=== PATIENT | female | born 1935 | race African-American/Black ===

== ENCOUNTER 2020-01-28 03:29 | Inpatient (IN) | payer MEDICARE, OTHER ==
[~2020-01-28] VITALS: Ht 154.9 cm; Wt 67.2 kg
[2020-01-28] VITALS (7 sets, daily range): BP systolic 120–148; BP diastolic 56–82
--- NOTE | 2020-01-28 03:55 | Emergency Room Report ---
History of Present Illness General Chief Complaint: Back Pain-No Injury Source: Patient, EMS (Darwin Castro MD) Present Illness HPI Patient presents with 2 weeks of worsening pain in her back. The last 2 days she is unable to get comfortable and move onto her side. She denies any new weakness or numbness. There is no trauma. She denies fevers or chills. She ran out of her blood pressure medicine but she has been continuing to take her water pill. She feels dehydrated and her mouth is dry. She denies any fevers, chills, cough or chest pain. She does complain of dysuria and some incontinence which is intermittent. This is long-standing and maybe slightly worsened currently. She moved her bowels yesterday without difficulty. No saddle numbness. No sore throat, chest pain, palpitations, nausea, vomiting, diarrhea, abdominal pain, shortness of breath, rashes, depression, anxiety, visual changes, dizziness, headache. She states in the past she has had intermittent kidney problems that usually resolves with IV therapy. (Darwin Castro MD) Allergies: Coded Allergies: No Known Allergies (Unverified , 01/28/20) COVID-19 Screening Contact w/high risk pt: No Experienced COVID-19 symptoms?: No COVID-19 Testing performed ESCAPE WHEEL TOOTH CUTTER: No (Darwin Castro MD) Patient History Past Medical History: see triage record Past Surgical History: pacemaker, other Social History: Denies: smoking - When she was young, alcohol use, drug use Social History Narrative Lives with family members at home, born in [place] and she used to be a [employer] Reviewed Nursing Documentation: PMH: Agreed; PSxH: Agreed (Darwin Castro MD) Nursing Documentation-PMH Past Medical History: No History, Except For Hx Cardiac Problems: Yes - pacemaker Hx Hypertension: Yes (Darwin Castro MD) Review of Systems All Other Systems: negative except mentioned in HPI (Darwin Castro MD) Physical Exam Vital Signs Date Time Temp Pulse Resp B/P (MAP) Pulse Ox O2 Delivery O2 Flow Rate FiO2 01/28/20 03:31 98.8 86 20 158/84 (108) 97 Room Air Sp02 EP Interpretation: reviewed, normal General Appearance: no apparent distress, GCS 15, non-toxic, obese Head: normocephalic Eyes: bilateral eye normal inspection, bilateral eye PERRL, bilateral eye EOMI ENT: dry mucus membranes - almost edentuous Neck: full range of motion, supple Respiratory: chest non-tender, lungs clear, normal breath sounds Cardiovascular #1: regular rate, rhythm Cardiovascular #2: 2+ radial (R), 2+ femoral (R), 2+ femoral (L) Gastrointestinal: normal inspection, non tender, soft, overweight Genitourinary: no CVA tenderness Musculoskeletal: tender - lumbar area, no rafi tenderness - paraspinous tenderness - difficult as patient overweight, other - DJD of fingers and MCPs Neurologic: motor strength/tone normal, DTRs symmetric, oriented x3, sensory intact, cerebellar normal, speech normal Psychiatric: mood/affect normal Reflexes: 1+ knee (R), 1+ knee (L), 1+ ankle (R), 1+ ankle (L) Skin: no rash, warm/dry (Darwin Castro MD) Medical Decision Making Diagnostic Impression: Primary Impression: Back pain Qualified Codes: M54.5 - Low back pain Additional Impressions: Leukocytosis Qualified Codes: D72.828 - Other elevated white blood cell count Spondylosis of lumbar spine Spinal stenosis Qualified Codes: M48.061 - Spinal stenosis, lumbar region without neurogenic claudication Renal failure Qualified Codes: N19 - Unspecified kidney failure Hypokalemia Dehydration ER Course Patient presents with worsening back pain and clinical signs of dehydration. Differential includes osteoarthritis, metastatic process, urinary tract infection, pyelonephritis, aortic aneurysm amongst others. Evaluation with EKG , chest x-ray, lumbar spine films and labs. Patient treated with IV hydration, Tylenol, Zofran and morphine. Patient placed on a youth nutritional monitor. Suspicion for COVID-19 is extremely low. Atrial sensed pacemaker with left bundle branch block. High WBC. Clinically suspect UTI so order Rocephin 450. Elevated white count against COVID-19. Low potassium. Change IV to NS + K. Urine clear. No urinary retention as only 150 cc in mistry. More evidence of dehydration. (Less for cauda equina syndrome.) Added vancomycin for possible spinal abscess. CT with contrast ordered ( increased risk with elevated creatinine discussed with patient). Unable to order MRI as patient has pacemaker. Contacted admitting physician pending CT results. Signed out to Dr. Bacon. Laboratory Tests Test 01/28/20 04:00 White Blood Count 21.7 K/UL (4.8-10.8) H Red Blood Count 4.27 M/UL (4.20-5.40) Hemoglobin 13.0 G/DL (12.0-16.0) Hematocrit 39.2 % (37.0-47.0) Mean Corpuscular Volume 92 FL (80-99) Mean Corpuscular Hemoglobin 30.5 PG (27.0-31.0) Mean Corpuscular Hemoglobin Concent 33.1 G/DL (32.0-36.0) Red Cell Distribution Width 12.1 % (11.6-14.8) Platelet Count 395 K/UL (150-450) Mean Platelet Volume 7.5 FL (6.5-10.1) Neutrophils (%) (Auto) % (45.0-75.0) Lymphocytes (%) (Auto) % (20.0-45.0) Monocytes (%) (Auto) % (1.0-10.0) Eosinophils (%) (Auto) % (0.0-3.0) Basophils (%) (Auto) % (0.0-2.0) Differential Total Cells Counted 100 Neutrophils % (Manual) 85 % (45-75) H Lymphocytes % (Manual) 5 % (20-45) L Monocytes % (Manual) 5 % (1-10) Eosinophils % (Manual) 0 % (0-3) Basophils % (Manual) 0 % (0-2) Band Neutrophils 5 % (0-8) Platelet Estimate Adequate Platelet Morphology Normal Prothrombin Time 12.1 SEC (9.30-11.50) H Prothrombin Time INR 1.1 (0.9-1.1) Activated Partial Thromboplast Time 33 SEC (23-33) Urine Color Yellow Urine Appearance Clear Urine pH 6 (4.5-8.0) Urine Specific [place] 1.015 (1.005-1.035) Urine Protein 2+ (NEGATIVE) H Urine Glucose (UA) Negative (NEGATIVE) Urine Ketones Negative (NEGATIVE) Urine Blood 2+ (NEGATIVE) H Urine Nitrite Negative (NEGATIVE) Urine Bilirubin Negative (NEGATIVE) Urine Urobilinogen Normal MG/DL (0.0-1.0) Urine Leukocyte Esterase Negative (NEGATIVE) Urine RBC 2-4 /HPF (0 - 2) H Urine WBC 0 /HPF (0 - 2) Urine Squamous Epithelial Cells Few /LPF (NONE/OCC) Urine Bacteria None /HPF (NONE) Sodium Level 140 MMOL/L (136-145) Potassium Level 2.5 MMOL/L (3.5-5.1) *L Chloride Level 102 MMOL/L (98-107) Carbon Dioxide Level 27 MMOL/L (21-32) Anion Gap 11 mmol/L (5-15) Blood Urea Nitrogen 24 mg/dL (7-18) H Creatinine 1.6 MG/DL (0.55-1.30) H Estimated Glomerular Filtration Rate 37.3 mL/min (>60) Glucose Level 135 MG/DL (74-106) H Lactic Acid Level 1.40 mmol/L (0.4-2.0) Calcium Level 8.4 MG/DL (8.5-10.1) L Magnesium Level 1.7 MG/DL (1.8-2.4) L Total Bilirubin 0.5 MG/DL (0.2-1.0) Aspartate Amino Transferase (AST) 35 U/L (15-37) Alanine Aminotransferase (ALT) 19 U/L (12-78) Alkaline Phosphatase 69 U/L (46-116) Total Creatine Kinase 136 U/L (26-308) Troponin I 0.021 ng/mL (0.000-0.056) Pro-B-Type Natriuretic Peptide 4338 pg/mL (0-125) H Total Protein 8.7 G/DL (6.4-8.2) H Albumin 2.5 G/DL (3.4-5.0) L Globulin 6.2 g/dL Albumin/Globulin Ratio 0.4 (1.0-2.7) L Lipase 86 U/L (73-393) (Darwin Castro MD) ER Course EXAM: CT Lumbar Spine With Intravenous Contrast CLINICAL HISTORY: PAIN TECHNIQUE: Axial computed tomography images of the lumbar spine with intravenous contrast. CTDI is 11.40 mGy and DLP is 467.20 mGy-cm. One or more of the following dose reduction techniques were used: automated exposure control, adjustment of the mA and/or kV according to patient size, use of iterative reconstruction technique. COMPARISON: No relevant prior studies available. FINDINGS: The vertebral body heights are maintained. The lumbar lordosis is preserved. There is 6 mm of grade 1-2 anterolisthesis of L4 on L5 with uncovering of a disc bulge. No pars defects. Associated, severe spinal canal stenosis at this level. Likely some degree of mass-effect on the cauda equina nerve roots. Correlate with physical exam. Multilevel degenerative endplate changes, intervertebral disc space narrowing (severely involving L5-S1), and facet arthropathy. Multilevel bilateral foraminal stenosis, which is severe at L5-S1 bilaterally. Diffuse osseous demineralization. Mistry catheter within a decompressed urinary bladder. IMPRESSION: No acute fracture of the lumbar spine. Multilevel degenerative changes, preferentially involving L4-5 where there is grade 1-2 anterolisthesis and severe spinal canal stenosis. Likely some degree of mass-effect on the cauda equina nerve roots. Correlate with physical exam. Patient was endorsed to me by previous physician. She remained hemodynamically stable and neurovascularly intact in the emergency department. CT of the lumbar spine however showed multilevel degenerative changes with L4-L5 anterolisthesis and spinal canal stenosis. Patient had indicated to me that she "was having trouble going to the restroom." She was given 10 mg of Decadron IV. However when Mistry catheter was placed only 150 cc of urine was drained. There does not appear to be any true urinary retention. I discussed the case with neurosurgery attending at [facility] who agreed that this was not true cauda equina syndrome and there is therefore no need for transfer for neurosurgery evaluation, as she was not complaining of any focal numbness or weakness or saddle anesthesia. Patient was admitted to medicine. (Bradley Bacon M.D.) EKG Diagnostic Results Rate: normal Rhythm: other - Atrial sensed pacemaker (Darwin Castro MD) Rhythm Strip Diag. Results Rhythm: no PVC's, no ectopy, other - Paced (Darwin Castro MD) Other X-Ray Diagnostic Results Other X-Ray Diagnostic Results : X-Ray ordered: LS spine # of Views/Limited Vs Complete: 3 View Indication: Pain EP Interpretation: Yes Interpretation: no soft tissue swelling, other - L45 offset 1 cm (Darwin Castro MD) CT/MRI/US Diagnostic Results CT/MRI/US Diagnostic Results : Imaging Test Ordered: CT LS spine contrast Impression No acute fracture of the lumbar spine. Multilevel degenerative changes, preferentially involving L4-5 where there is grade 1-2 anterolisthesis and severe spinal canal stenosis. Likely some degree of mass-effect on the cauda equina nerve roots. (Darwin Castro MD) Last Vital Signs Date Time Temp Pulse Resp B/P (MAP) Pulse Ox O2 Delivery O2 Flow Rate FiO2 01/29/20 00:09 98.0 80 22 132/87 (102) 94 01/28/20 21:00 Room Air Status: improved (Darwin Castro MD) Disposition: ADMITTED INPATIENT Condition: Serious Darwin Castro MD Jan 28, 2020 03:55 Bradley Bacon M.D. Jan 28, 2020 09:37
[2020-01-28] MEDS ORDERED: Morphine Sulfate 2mg/ml Inj(IV/IM USE ONLY) IVP ONE (04:00)
[2020-01-28 04:25] LABS: HEMATOCRIT 39.2 % (37.0-47.0); MEAN CORPUSCULAR VOLUME 92 FL (80-99); PLATELET COUNT 395 K/UL (150-450); RED BLOOD COUNT 4.27 M/UL (4.20-5.40); RED CELL DISTRIBUTION WIDTH 12.1 % (11.6-14.8); WHITE BLOOD COUNT 21.7 K/UL (4.8-10.8)
[2020-01-28 04:34] LABS: INR 1.1 (0.9-1.1)
[2020-01-28 04:44] LABS: ALANINE AMINOTRANSFERASE 19 U/L (12-78); ALBUMIN 2.5 G/DL (3.4-5.0); ALBUMIN/GLOBULIN RATIO 0.4 (1.0-2.7); ALKALINE PHOSPHATASE 69 U/L (46-116); ANION GAP 11 mmol/L (5-15); ASPARTATE AMINO TRANSFERASE 35 U/L (15-37); BILIRUBIN,TOTAL 0.5 MG/DL (0.2-1.0); BLOOD UREA NITROGEN 24 mg/dL (7-18); CALCIUM 8.4 MG/DL (8.5-10.1); CARBON DIOXIDE 27 MMOL/L (21-32); CHLORIDE 102 MMOL/L (98-107); CREATINE KINASE 136 U/L (26-308); CREATININE 1.6 MG/DL (0.55-1.30); SODIUM 140 MMOL/L (136-145)
[2020-01-28 04:47] LABS: POTASSIUM 2.5 MMOL/L (3.5-5.1)
[2020-01-28] MEDS ORDERED: cefTRIAXone 1 GM in NS 55 ML IVPB ONE (05:00)
[2020-01-28] MEDS ORDERED: NS w/KCl 20mEq 1000ml 1,000 ML IV SCH (05:00)
[2020-01-28 05:02] LABS: APPEARANCE,URINE CLEAR; BILIRUBIN, URINE NEGATIVE (NEGATIVE); GLUCOSE, URINE (UA) NEGATIVE (NEGATIVE); KETONES,URINE NEGATIVE (NEGATIVE); LEUKOCYTE ESTERASE ,URINE NEGATIVE (NEGATIVE); NITRITE,URINE NEGATIVE (NEGATIVE); PH,URINE 6 (4.5-8.0); PROTEIN,URINE 2+ (NEGATIVE); UROBILINOGEN,URINE NORMAL MG/DL (0.0-1.0)
[2020-01-28 05:10] LABS: COLOR,URINE YELLOW
--- NOTE | 2020-01-28 06:01 | Diagnostic Imaging Report ---
EXAM: XR Chest, 1 View CLINICAL HISTORY: BK PAIN TECHNIQUE: Frontal view of the chest. COMPARISON: No relevant prior studies available. FINDINGS: Lungs: Hypoventilatory changes at the lung bases. Pleural space: Unremarkable. No pneumothorax. Heart: Moderately enlarged heart. Mediastinum: Unremarkable. Bones/joints: Unremarkable. Vasculature: Calcified, tortuous thoracic aorta. Tubes, lines and devices: Left chest dual-chamber pacemaker. IMPRESSION: Cardiomegaly and hazy densities of the bilateral lung bases that could reflect atelectasis. Superimposed airspace disease not excluded.
--- NOTE | 2020-01-28 06:04 | Diagnostic Imaging Report ---
EXAM: XR Lumbosacral Spine, 2 or 3 Views CLINICAL HISTORY: BK PAIN TECHNIQUE: Frontal and lateral views of the lumbar spine and sacrum. COMPARISON: No relevant prior studies available. FINDINGS: Vertebrae: Osteopenia. Grade 1 anterolisthesis of L4 on L5. No acute fracture or aggressive osseous lesions. Left hip dynamic screw fixation. Sacrum/coccyx: Unremarkable as visualized. No acute fracture. Disc spaces: Moderate disc space narrowing at L4-L5 and L5-S1. Soft tissues: Unremarkable. Tubes, lines and devices: Soft tissues show pacemaker wire in the lower chest and moderate stool throughout the large bowel. IMPRESSION: Lumbar spinal degenerative spondylosis with no acute fracture or traumatic malalignment.
[2020-01-28] MEDS ORDERED: Omnipaque-300 100ml vial INJ STA (06:07)
[2020-01-28] MEDS ORDERED: HydrALAZINE 25mg tab ORAL PRN (06:15)
[2020-01-28] MEDS ORDERED: Vancomycin 1 GM in NS 275 ML IVPB ONE (06:15)
[2020-01-28] MEDS: NS w/KCl 20mEq 1000ml 1,000 ML IV SCH ×2 (07:56→21:34)
--- NOTE | 2020-01-28 07:59 | Diagnostic Imaging Report ---
EXAM: CT Lumbar Spine With Intravenous Contrast CLINICAL HISTORY: PAIN TECHNIQUE: Axial computed tomography images of the lumbar spine with intravenous contrast. CTDI is 11.40 mGy and DLP is 467.20 mGy-cm. One or more of the following dose reduction techniques were used: automated exposure control, adjustment of the mA and/or kV according to patient size, use of iterative reconstruction technique. COMPARISON: No relevant prior studies available. FINDINGS: The vertebral body heights are maintained. The lumbar lordosis is preserved. There is 6 mm of grade 1-2 anterolisthesis of L4 on L5 with uncovering of a disc bulge. No pars defects. Associated, severe spinal canal stenosis at this level. Likely some degree of mass-effect on the cauda equina nerve roots. Correlate with physical exam. Multilevel degenerative endplate changes, intervertebral disc space narrowing (severely involving L5-S1), and facet arthropathy. Multilevel bilateral foraminal stenosis, which is severe at L5-S1 bilaterally. Diffuse osseous demineralization. Collins catheter within a decompressed urinary bladder. IMPRESSION: No acute fracture of the lumbar spine. Multilevel degenerative changes, preferentially involving L4-5 where there is grade 1-2 anterolisthesis and severe spinal canal stenosis. Likely some degree of mass-effect on the cauda equina nerve roots. Correlate with physical exam.
[2020-01-28] MEDS ORDERED: dexAMETHasone 10mg/ml Inj IV ONE (08:15)
[2020-01-28] MEDS: Piperacillin/Tazobactam 3.375 GM in NS 110 ML IVPB SCH ×2 (09:20→21:35)
[2020-01-28] MEDS: Hydromorphone 0.5mg/0.5ml inj IVP PRN (09:21)
[2020-01-28] MEDS ORDERED: ASPIRIN EC81 MG ORAL (10:12)
[2020-01-28] MEDS ORDERED: LIPITOR20 MG ORAL (10:15)
[2020-01-28] MEDS ORDERED: COREG25 MG ORAL (10:15)
[2020-01-28] MEDS ORDERED: FUROSEMIDE20 M1 ORAL (10:15)
--- NOTE | 2020-01-28 10:18 | History & Physical ---
History and Physical History & Physicial History and Physical HPI Patient admitted complaining of 2 weeks of worsening back pain. She denies any new weakness or numbness. There is no trauma. She denies fevers or chills. She has a history of Hypertension and ran out of her blood pressure medicine, History of Congestive Heart Failure on diuresis. She denies any cough or chest pain. She does complain of dysuria and some incontinence which is intermittent. No saddle numbness. ER Physician discussed the case with neurosurgery attending at [facility] who agreed that this was not true cauda equina syndrome and there is therefore no need for transfer for neurosurgery evaluation, as she was not complaining of any focal numbness or weakness or saddle anesthesia. Patient was admitted to medicine. Allergies: No Known Allergies Past Medical History: Hypertension, Pacemaker,Congestive Heart Failure Past Surgical History: pacemaker Social History: Denies: smoking, no alcohol use, nodrug use Lives with family members at home, born in [place] and she used to be a [employer] Family History: [place] All Other Systems: negative except mentioned in HPI Physical Exam Vital Signs Noted Date Time Temp Pulse Resp B/P (MAP) Pulse Ox O2 Delivery O2 Flow Rate FiO2 01/28/20 03:31 98.8 86 20 158/84 (108) 97 Room Air General Appearance: no apparent distress, GCS 15, non-toxic, obese Head: normocephalic Eyes: bilateral eye normal inspection, bilateral eye PERRL, bilateral eye EOMI ENT: dry mucus membranes Musculoskeletal: tender - lumbar area, no rafi tenderness - paraspinous tenderness - difficult as patient overweight, other - DJD of fingers and MCPs Neurologic: motor strength/tone normal, oriented x3, sensory intact, cerebellar normal, speech normal Skin: no rash, warm/dry, no edema Impression: Back pain Leukocytosis Pulmonary Infiltrates Elevated white blood cell count Spondylosis of lumbar spine Spinal stenosis Hypertension Pacemaker Congestive Heart Failure Plan: IV Antibiotics ID Consultation R/o Covid Pain Medications PTAMedications Renal Consultation Monitor labs IVF Collins catheter Laboratory Tests Test 01/28/20 04:00 White Blood Count 21.7 K/UL (4.8-10.8) H Red Blood Count 4.27 M/UL (4.20-5.40) Hemoglobin 13.0 G/DL (12.0-16.0) Hematocrit 39.2 % (37.0-47.0) Mean Corpuscular Volume 92 FL (80-99) Mean Corpuscular Hemoglobin 30.5 PG (27.0-31.0) Mean Corpuscular Hemoglobin Concent 33.1 G/DL (32.0-36.0) Red Cell Distribution Width 12.1 % (11.6-14.8) Platelet Count 395 K/UL (150-450) Mean Platelet Volume 7.5 FL (6.5-10.1) Neutrophils (%) (Auto) % (45.0-75.0) Lymphocytes (%) (Auto) % (20.0-45.0) Monocytes (%) (Auto) % (1.0-10.0) Eosinophils (%) (Auto) % (0.0-3.0) Basophils (%) (Auto) % (0.0-2.0) Differential Total Cells Counted 100 Neutrophils % (Manual) 85 % (45-75) H Lymphocytes % (Manual) 5 % (20-45) L Monocytes % (Manual) 5 % (1-10) Eosinophils % (Manual) 0 % (0-3) Basophils % (Manual) 0 % (0-2) Band Neutrophils 5 % (0-8) Platelet Estimate Adequate Platelet Morphology Normal Prothrombin Time 12.1 SEC (9.30-11.50) H Prothrombin Time INR 1.1 (0.9-1.1) Activated Partial Thromboplast Time 33 SEC (23-33) Urine Color Yellow Urine Appearance Clear Urine pH 6 (4.5-8.0) Urine Specific [place] 1.015 (1.005-1.035) Urine Protein 2+ (NEGATIVE) H Urine Glucose (UA) Negative (NEGATIVE) Urine Ketones Negative (NEGATIVE) Urine Blood 2+ (NEGATIVE) H Urine Nitrite Negative (NEGATIVE) Urine Bilirubin Negative (NEGATIVE) Urine Urobilinogen Normal MG/DL (0.0-1.0) Urine Leukocyte Esterase Negative (NEGATIVE) Urine RBC 2-4 /HPF (0 - 2) H Urine WBC 0 /HPF (0 - 2) Urine Squamous Epithelial Cells Few /LPF (NONE/OCC) Urine Bacteria None /HPF (NONE) Sodium Level 140 MMOL/L (136-145) Potassium Level 2.5 MMOL/L (3.5-5.1) *L Chloride Level 102 MMOL/L (98-107) Carbon Dioxide Level 27 MMOL/L (21-32) Anion Gap 11 mmol/L (5-15) Blood Urea Nitrogen 24 mg/dL (7-18) H Creatinine 1.6 MG/DL (0.55-1.30) H Estimated Glomerular Filtration Rate 37.3 mL/min (>60) Glucose Level 135 MG/DL (74-106) H Lactic Acid Level 1.40 mmol/L (0.4-2.0) Calcium Level 8.4 MG/DL (8.5-10.1) L Magnesium Level 1.7 MG/DL (1.8-2.4) L Total Bilirubin 0.5 MG/DL (0.2-1.0) Aspartate Amino Transferase (AST) 35 U/L (15-37) Alanine Aminotransferase (ALT) 19 U/L (12-78) Alkaline Phosphatase 69 U/L (46-116) Total Creatine Kinase 136 U/L (26-308) Troponin I 0.021 ng/mL (0.000-0.056) Pro-B-Type Natriuretic Peptide 4338 pg/mL (0-125) H Total Protein 8.7 G/DL (6.4-8.2) H Albumin 2.5 G/DL (3.4-5.0) L Globulin 6.2 g/dL Albumin/Globulin Ratio 0.4 (1.0-2.7) L Lipase 86 U/L (73-393) CT Lumbar Spine With Intravenous Contrast CLINICAL HISTORY: PAIN TECHNIQUE: Axial computed tomography images of the lumbar spine with intravenous contrast. CTDI is 11.40 mGy and DLP is 467.20 mGy-cm. One or more of the following dose reduction techniques were used: automated exposure control, adjustment of the mA and/or kV according to patient size, use of iterative reconstruction technique. COMPARISON: No relevant prior studies available. FINDINGS: The vertebral body heights are maintained. The lumbar lordosis is preserved. There is 6 mm of grade 1-2 anterolisthesis of L4 on L5 with uncovering of a disc bulge. No pars defects. Associated, severe spinal canal stenosis at this level. Likely some degree of mass-effect on the cauda equina nerve roots. Correlate with physical exam. Multilevel degenerative endplate changes, intervertebral disc space narrowing (severely involving L5-S1), and facet arthropathy. Multilevel bilateral foraminal stenosis, which is severe at L5-S1 bilaterally. Diffuse osseous demineralization. Collins catheter within a decompressed urinary bladder. IMPRESSION: No acute fracture of the lumbar spine. Multilevel degenerative changes, preferentially involving L4-5 where there is grade 1-2 anterolisthesis and severe spinal canal stenosis. Likely some degree of mass-effect on the cauda equina nerve roots. Correlate with physical exam. EKG:Rate: normal Rhythm: other - Atrial sensed pacemaker Other X-Ray Diagnostic Results : X-Ray LS spine: no soft tissue swelling, other - L45 offset [address]/MRI/US CT LS spine contrast No acute fracture of the lumbar spine. Multilevel degenerative changes, preferentially involving L4-5 where there is grade 1-2 anterolisthesis and severe spinal canal stenosis. Likely some degree of mass-effect on the cauda equina nerve roots. Darwin Moses MD Jan 28, 2020 10:18
--- NOTE | 2020-01-28 11:30 | Consultation ---
DATE OF CONSULTATION: 01/28/2020 INFECTIOUS DISEASE CONSULTATION CONSULTING PHYSICIAN: Chikis Leos MD. REFERRING PHYSICIAN: Deon Grover MD. REASON FOR CONSULTATION: Urinary tract infection. HISTORY OF PRESENTING ILLNESS: This is an 85-year-old lady with history of hypertension, congestive heart failure, and pacemaker placement, who comes in with worsening back pain. She does complain of dysuria. There is a concern for urinary tract infection. An Infectious Diseases consultation has been obtained for antibiotics. PAST MEDICAL HISTORY: 1. History of hypertension. 2. Congestive heart failure. 3. Pacemaker placement. SOCIAL HISTORY: She does not smoke, drink, or use drugs. FAMILY HISTORY: Noncontributory. REVIEW OF SYSTEMS: RESPIRATORY: No fever, chills, cough, shortness of breath or chest pain. CARDIAC: No chest pain. No palpitation. No dizziness. No syncope. GASTROINTESTINAL: She has nausea. No vomiting. No abdominal pain or diarrhea. MUSCULOSKELETAL: She complains of back pain. GENITOURINARY: She complains of dysuria. MEDICATIONS: As an inpatient, she is on magnesium sulfate, amlodipine, Zosyn, potassium, Tylenol, [place], Dilaudid, Zofran, hydralazine, and IV vancomycin. ALLERGIES: No known drug allergies. PHYSICAL EXAMINATION: VITAL SIGNS: Temperature 98.2, T-max of 98.8, pulse 71, respiratory rate 19, blood pressure 128/62. O2 saturation of 99% on room air. HEENT: Pupils are equally reactive to light and accommodation. Mouth appears clean without thrush. NECK: Supple. No adenopathy. No JVD. CARDIOVASCULAR: Regular rate and rhythm. No murmurs. LUNGS: Clear to auscultation bilaterally. No crackles. No wheezes. ABDOMEN: Soft. Right upper quadrant tenderness noted. No organomegaly. EXTREMITIES: No cyanosis, no clubbing, no edema. LABORATORY AND DIAGNOSTIC DATA: White count 21.7, hemoglobin 13, hematocrit 39.2, MCV 92, platelet count 395,000, neutrophils of 85%. Sodium 140, potassium 2.5, chloride 102, bicarb 27, BUN 24, creatinine 1.6. Glucose 135. Calcium 8.4. Magnesium 1.7. Total bilirubin 0.5, AST 35, ALT 19, alkaline phosphatase 69. CK 136, troponin 0.02. Beta-natriuretic peptide 4338. Total protein 8.7, albumin 2.5. Lipase of 86. UA showing [address] of the spine is showing no acute fracture, multilevel DJD noted, and severe spinal canal stenosis at L4-L5, anterolisthesis. There is some mass effect on the cauda equina nerve root. Chest x-ray is showing cardiomegaly and hazy densities of the bilateral lung bases, could represent atelectasis. Lumbar spine x-ray showing lumbar spinal degenerative spondylosis with no fracture. ASSESSMENT: This is an 85-year-old lady with history of hypertension, pacemaker, and congestive heart failure, who comes in with back pain and is found to have, 1. Possible urinary tract infection. 2. We would like to rule out pneumonia as a possibility. 3. Hypertension. 4. Congestive heart failure. 5. Leukocytosis. PLAN: 1. We will follow up on COVID-19 testing. 2. Continue Zosyn. 3. Discontinue vancomycin. 4. We will order urine cultures. 5. We will follow up cultures and adjust antibiotics accordingly. I would like to thank Dr. Grover for this consultation. Chikis Leos M.D. DR: ARMANDO JOB#: [id number] CC:
--- NOTE | 2020-01-28 14:44 | Diagnostic Imaging Report ---
EXAM: US Duplex Bilateral Lower Extremities Veins CLINICAL HISTORY: DVT TECHNIQUE: Real-time duplex ultrasound scan of the bilateral lower extremity veins integrating B-mode two-dimensional vascular structure, Doppler spectral analysis, color flow Doppler imaging and compression. COMPARISON: No relevant prior studies available. FINDINGS: Right deep veins: Unremarkable. No DVT in the right common femoral, femoral, proximal deep femoral or popliteal veins. The veins demonstrate normal color flow, are normally compressible, with normal phasic flow and/or augmentation response. Right superficial veins: Unremarkable. No thrombus in the visualized right great saphenous vein. Left deep veins: Unremarkable. No DVT in the left common femoral, femoral, proximal deep femoral or popliteal veins. The veins demonstrate normal color flow, are normally compressible, with normal phasic flow and/or augmentation response. Left superficial veins: Unremarkable. No thrombus in the visualized left great saphenous vein. Soft tissues: No acute findings. No popliteal cyst. IMPRESSION: Normal bilateral lower extremity duplex venous ultrasound.
--- NOTE | 2020-01-28 16:30 | Consultation ---
DATE OF CONSULTATION: 01/28/2020 REFERRING PHYSICIAN: Deon Grover M.D. REASON FOR CONSULTATION: Acute kidney injury. HISTORY OF PRESENT ILLNESS: The patient is an 85-year-old female who is currently heavily sedated, difficult to arouse, who was admitted for further evaluation and care of intractable back pain and found to possibly have a urinary tract infection. She was started on empiric antibiotics and Infectious Disease was consulted. The only creatinine in the electronic medical system is noted to be at 1.6. The patient was initiated of IV fluids. PAST MEDICAL HISTORY: 1. Hypertension. 2. CHF. 3. Bradycardia. SOCIAL HISTORY: No current tobacco, alcohol, or illicit drug use FAMILY HISTORY: Positive for hypertension. ALLERGIES: No known drug allergies. REVIEW OF SYSTEMS: Cannot obtain as the patient is currently heavily sedated and difficult to arouse. PHYSICAL EXAMINATION: VITAL SIGNS: Blood pressure 128/62, respiratory rate 19, pulse 71, temperature 98.1. GENERAL: The patient is very heavily sedated, difficult to arouse. HEENT: Extraocular muscles intact. No lymphadenopathy noted. CARDIOVASCULAR: S1, S2. No rubs or gallops. PULMONARY: Clear to auscultation bilaterally. No rales, rhonchi, or wheeze. ABDOMEN: Nondistended and nontender. EXTREMITIES: Trace edema bilaterally. ASSESSMENT AND PLAN: 1. Acute kidney injury versus chronic kidney disease. No baseline creatinine is available. Creatinine currently at 1.6. At this time, recommend maintaining a mean arterial blood pressure greater than 65 mmHg and avoiding nephrotoxins if possible. Would not recommend IV contrast until renal function stabilizes. Continue hydration and treat underlying urinary tract infection. 2. Urinary tract infection. Antibiotics to be adjusted by Infectious Disease. 3. Back pain. Being addressed by primary care physician. 4. Hypertension. Adjust medications as deemed appropriate. 5. Hypokalemia. The patient was given 20 mEq p.o. I will added another 40 mEq p.o. as her potassium was 2.5. 6. I will continue to follow the patient until Wednesday, January 29, 2020, and Dr. Jennings will return on Thursday, January 30, 2020. Wu Hobbs MD DR: KISHORE JOB#: [id number] CC:
[2020-01-28 18:38] LABS: ANION GAP 9 mmol/L (5-15); BLOOD UREA NITROGEN 23 mg/dL (7-18); CALCIUM 8.2 MG/DL (8.5-10.1); CARBON DIOXIDE 25 MMOL/L (21-32); CHLORIDE 108 MMOL/L (98-107); CREATININE 1.2 MG/DL (0.55-1.30); POTASSIUM 4.4 MMOL/L (3.5-5.1); SODIUM 142 MMOL/L (136-145)
[2020-01-29 00:09] VITALS: BP 132/87
[2020-01-29] MEDS: HYDROcodone/Acetamin 5/325 tab ORAL PRN ×2 (04:31→18:48)
[2020-01-29 04:37] VITALS: BP 137/87
[2020-01-29 06:51] LABS: HEMATOCRIT 33.2 % (37.0-47.0); MEAN CORPUSCULAR VOLUME 93 FL (80-99); PLATELET COUNT 351 K/UL (150-450); RED BLOOD COUNT 3.56 M/UL (4.20-5.40); RED CELL DISTRIBUTION WIDTH 12.6 % (11.6-14.8)
[2020-01-29 07:01] LABS: WHITE BLOOD COUNT 24.5 K/UL (4.8-10.8)
[2020-01-29 07:35] LABS: ALANINE AMINOTRANSFERASE 17 U/L (12-78); ALBUMIN 1.8 G/DL (3.4-5.0); ALBUMIN/GLOBULIN RATIO 0.3 (1.0-2.7); ALKALINE PHOSPHATASE 91 U/L (46-116); ANION GAP 11 mmol/L (5-15); ASPARTATE AMINO TRANSFERASE 23 U/L (15-37); BILIRUBIN,TOTAL 0.3 MG/DL (0.2-1.0); BLOOD UREA NITROGEN 24 mg/dL (7-18); CALCIUM 8.6 MG/DL (8.5-10.1); CARBON DIOXIDE 22 MMOL/L (21-32); CHLORIDE 110 MMOL/L (98-107); CREATININE 1.3 MG/DL (0.55-1.30); SODIUM 143 MMOL/L (136-145)
[2020-01-29 08:00] VITALS: BP 121/57
[2020-01-29] MEDS: Piperacillin/Tazobactam 3.375 GM in NS 110 ML IVPB SCH ×2 (08:35→21:42)
[2020-01-29] MEDS: Aspirin EC 81mg tab ORAL SCH (08:35)
[2020-01-29] MEDS: NS w/KCl 20mEq 1000ml 1,000 ML IV SCH ×2 (10:40→20:50)
[2020-01-29 12:00] VITALS: BP 123/60
[2020-01-29] MEDS ORDERED: Vancomycin 1 GM in NS 275 ML IVPB ONE (12:00)
--- NOTE | 2020-01-29 12:17 | Pulmonology Progress Note ---
Subjective ROS Limited/Unobtainable: No Allergies: Coded Allergies: No Known Allergies (Unverified , 01/28/20) Objective Last 24 Hour Vital Signs Date Time Temp Pulse Resp B/P (MAP) Pulse Ox O2 Delivery O2 Flow Rate FiO2 01/29/20 09:00 Room Air 01/29/20 08:35 74 121/57 01/29/20 08:00 98.4 74 20 121/57 (78) 94 01/29/20 05:01 98.4 01/29/20 04:37 98.4 74 20 137/87 (104) 98 01/29/20 00:09 98.0 80 22 132/87 (102) 94 01/28/20 21:00 Room Air 01/28/20 20:00 97.8 78 20 120/78 (92) 98 01/28/20 16:00 97.7 61 18 124/65 (84) 98 Intake and Output 01/28/20 01/29/20 19:00 07:00 Intake Total 1410 ml Output Total 500 ml 650 ml Balance 910 ml -650 ml Intake Oral 300 ml IV Total 1110 ml Output Urine Total 500 ml 650 ml Microbiology Date/Time Source Procedure Growth Status 01/28/20 06:00 Blood Blood Culture - Preliminary Resulted 01/28/20 05:45 Blood Blood Culture - Preliminary Resulted 01/28/20 11:10 Nasopharynx SARS-CoV-2 RdRp Gene Assay - Final Complete Laboratory Tests 01/28/20 18:05: Sodium Level 142, Potassium Level 4.4#, Chloride Level 108H, Carbon Dioxide Level 25, Anion Gap 9, Blood Urea Nitrogen 23H, Creatinine 1.2, Estimat Glomerular Filtration Rate 52.0, Glucose Level 177H, Calcium Level 8.2L 01/29/20 05:45: Sodium Level 143, Potassium Level 4.0, Chloride Level 110H, Carbon Dioxide Level 22, Anion Gap 11, Blood Urea Nitrogen 24H, Creatinine 1.3, Estimat Glomerular Filtration Rate 47.4, Glucose Level 128H, Calcium Level 8.6, White Blood Count 24.5*H, Red Blood Count 3.56L, Hemoglobin 11.0L, Hematocrit 33.2L, Mean Corpuscular Volume 93, Mean Corpuscular Hemoglobin 30.8, Mean Corpuscular Hemoglobin Concent 33.1, Red Cell Distribution Width 12.6, Platelet Count 351, Mean Platelet Volume 6.6, Neutrophils (%) (Auto) , Lymphocytes (%) (Auto) , Monocytes (%) (Auto) , Eosinophils (%) (Auto) , Basophils (%) (Auto) , Differential Total Cells Counted 100, Neutrophils % (Manual) 95H, Lymphocytes % (Manual) 3L, Monocytes % (Manual) 2, Eosinophils % (Manual) 0, Basophils % ( Manual) 0, Band Neutrophils 0, Platelet Estimate Adequate, Platelet Morphology Normal, Hypochromasia 1+, Total Bilirubin 0.3, Aspartate Amino Transf (AST/SGOT ) 23, Alanine Aminotransferase (ALT/SGPT) 17, Alkaline Phosphatase 91, Total Protein 7.0, Albumin 1.8L, Globulin 5.2, Albumin/Globulin Ratio 0.3L, Random Vancomycin Level 1.2 Current Medications Medications (Trade) Dose Ordered Sig/[place] Route PRN Reason Start Time Stop Time Status Last Admin Dose Admin Acetaminophen (Tylenol) 650 mg Q6H PRN ORAL Mild Pain (Pain Scale 1-3) 01/28/20 06:15 02/27/20 06:14 01/28/20 07:57 Acetaminophen/ Hydrocodone Bitart ([place] 5/325) 1 tab Q6H PRN ORAL Moderate Pain (Pain Scale 4-6) 01/28/20 06:15 02/04/20 06:14 01/29/20 04:31 Amlodipine Besylate (Norvasc) 2.5 mg DAILY ORAL 01/28/20 09:00 02/27/20 08:59 01/29/20 08:35 Aspirin (Ecotrin) 81 mg DAILY ORAL 01/29/20 09:00 03/14/20 08:59 01/29/20 08:35 Hydralazine HCl (Apresoline) 25 mg Q6H PRN ORAL For High Blood Pressure 01/28/20 06:15 04/27/20 06:14 Hydromorphone HCl (Dilaudid) 0.5 mg Q3H PRN IVP Severe Pain (Pain Scale 7-10) 01/28/20 06:15 02/04/20 06:14 01/28/20 09:21 Ondansetron HCl (Zofran) 4 mg Q6H PRN IVP Nausea & Vomiting 01/28/20 06:15 02/27/20 06:14 01/28/20 10:43 Piperacillin Sod/ Tazobactam Sod 3.375 gm/Sodium Chloride 110 ml @ 27.5 mls/hr Q12HR IVPB 01/28/20 09:00 02/04/20 08:59 01/29/20 08:35 Potassium Chloride/Sodium Chloride 1,000 ml @ 75 mls/hr [id number] IV 01/28/20 08:00 02/27/20 07:59 01/28/20 21:34 Vancomycin HCl (Vanco pharmacy to dose) 1 ea DAILY PRN MISC Per rx protocol 01/29/20 10:45 02/28/20 10:44 Vancomycin HCl 1 gm/Sodium Chloride 275 ml @ 183.708 mls/hr ONCE ONCE IVPB 01/29/20 12:00 01/29/20 13:29 Assessment/Plan Assessment/Plan Progress Note HPI Patient admitted complaining of 2 weeks of worsening back pain. She denies any new weakness or numbness. There is no trauma. She denies fevers or chills. She has a history of Hypertension and ran out of her blood pressure medicine, History of Congestive Heart Failure on diuresis. She denies any cough or chest pain. She does complain of dysuria and some incontinence which is intermittent. No saddle numbness. ER Physician discussed the case with neurosurgery attending at [facility] who agreed that this was not true cauda equina syndrome and there is therefore no need for transfer for neurosurgery evaluation, as she was not complaining of any focal numbness or weakness or saddle anesthesia. No new complaints Allergies: No Known Allergies Past Medical History: Hypertension, Pacemaker,Congestive Heart Failure Physical Exam Vital Signs Noted General Appearance: no apparent distress, GCS 15, non-toxic, obese Head: normocephalic Eyes: bilateral eye normal inspection, bilateral eye PERRL, bilateral eye EOMI ENT: dry mucus membranes Musculoskeletal: tender - lumbar area, no rafi tenderness - paraspinous tenderness - difficult as patient overweight, other - DJD of fingers and MCPs Neurologic: motor strength/tone normal, oriented x3, sensory intact, cerebellar normal, speech normal Skin: no rash, warm/dry, no edema Impression: Back pain Positive BC - GPC Leukocytosis Pulmonary Infiltrates, Covid 19 negative Elevated white blood cell count Spondylosis of lumbar spine Spinal stenosis Hypertension Pacemaker Congestive Heart Failure Plan: IV Antibiotics per ID ] Pain Medications PTAMedications Renal Consultation Monitor labs IVF Collins catheter Laboratory Tests Noted BC: BPC both sets CT Lumbar Spine With Intravenous Contrast CLINICAL HISTORY: PAIN TECHNIQUE: Axial computed tomography images of the lumbar spine with intravenous contrast. CTDI is 11.40 mGy and DLP is 467.20 mGy-cm. One or more of the following dose reduction techniques were used: automated exposure control, adjustment of the mA and/or kV according to patient size, use of iterative reconstruction technique. COMPARISON: No relevant prior studies available. FINDINGS: The vertebral body heights are maintained. The lumbar lordosis is preserved. There is 6 mm of grade 1-2 anterolisthesis of L4 on L5 with uncovering of a disc bulge. No pars defects. Associated, severe spinal canal stenosis at this level. Likely some degree of mass-effect on the cauda equina nerve roots. Correlate with physical exam. Multilevel degenerative endplate changes, intervertebral disc space narrowing (severely involving L5-S1), and facet arthropathy. Multilevel bilateral foraminal stenosis, which is severe at L5-S1 bilaterally. Diffuse osseous demineralization. Collins catheter within a decompressed urinary bladder. IMPRESSION: No acute fracture of the lumbar spine. Multilevel degenerative changes, preferentially involving L4-5 where there is grade 1-2 anterolisthesis and severe spinal canal stenosis. Likely some degree of mass-effect on the cauda equina nerve roots. Correlate with physical exam. EKG:Rate: normal Rhythm: other - Atrial sensed pacemaker Other X-Ray Diagnostic Results : X-Ray LS spine: no soft tissue swelling, other - L45 offset [address]/MRI/US CT LS spine contrast No acute fracture of the lumbar spine. Multilevel degenerative changes, preferentially involving L4-5 where there is grade 1-2 anterolisthesis and severe spinal canal stenosis. Likely some degree of mass-effect on the cauda equina nerve roots. Darwin Moses MD Jan 29, 2020 12:17
--- NOTE | 2020-01-29 12:28 | Infectious Diseases Prog Note ---
Assessment/Plan Assessment/Plan A; 1. Bacteremia with gram positive cocci 2. Atelectasis/ pneumonia 3. Hypertension. 4. Congestive heart failure. 5. Leukocytosis. 6. Spinal stenosis/ back pain PLAN: 1. Continue Zosyn & vancomycin. 2.We will follow up cultures and adjust antibiotics accordingly. Subjective ROS Limited/Unobtainable: No Constitutional: Reports: no symptoms Respiratory: Reports: productive cough Cardiovascular: Reports: no symptoms Gastrointestinal/Abdominal: Reports: no symptoms Genitourinary: Reports: no symptoms Musculoskeletal: Reports: pain, other - back pain better Allergies: Coded Allergies: No Known Allergies (Unverified , 01/28/20) Objective Last 24 Hour Vital Signs Date Time Temp Pulse Resp B/P (MAP) Pulse Ox O2 Delivery O2 Flow Rate FiO2 01/29/20 09:00 Room Air 01/29/20 08:35 74 121/57 01/29/20 08:00 98.4 74 20 121/57 (78) 94 01/29/20 05:01 98.4 01/29/20 04:37 98.4 74 20 137/87 (104) 98 01/29/20 00:09 98.0 80 22 132/87 (102) 94 01/28/20 21:00 Room Air 01/28/20 20:00 97.8 78 20 120/78 (92) 98 01/28/20 16:00 97.7 61 18 124/65 (84) 98 Height (Feet): 5 Height (Inches): 1.00 Weight (Pounds): 139 General Appearance: no acute distress HEENT: mucous membranes moist Respiratory/Chest: lungs clear Cardiovascular: normal rate Abdomen: soft, non tender Extremities: no edema, other - SCD of lega Neurologic/Psychiatric: alert, oriented x 3, responsive Microbiology Date/Time Source Procedure Growth Status 01/28/20 06:00 Blood Blood Culture - Preliminary Resulted 01/28/20 05:45 Blood Blood Culture - Preliminary Resulted 01/28/20 11:10 Nasopharynx SARS-CoV-2 RdRp Gene Assay - Final Complete Laboratory Tests Test 01/28/20 18:05 01/29/20 05:45 Sodium Level 142 MMOL/L (136-145) 143 MMOL/L (136-145) Potassium Level 4.4 MMOL/L (3.5-5.1) # 4.0 MMOL/L (3.5-5.1) Chloride Level 108 MMOL/L (98-107) H 110 MMOL/L (98-107) H Carbon Dioxide Level 25 MMOL/L (21-32) 22 MMOL/L (21-32) Anion Gap 9 mmol/L (5-15) 11 mmol/L (5-15) Blood Urea Nitrogen 23 mg/dL (7-18) H 24 mg/dL (7-18) H Creatinine 1.2 MG/DL (0.55-1.30) 1.3 MG/DL (0.55-1.30) Estimat Glomerular Filtration Rate 52.0 mL/min (>60) 47.4 mL/min (>60) Glucose Level 177 MG/DL (74-106) H 128 MG/DL (74-106) H Calcium Level 8.2 MG/DL (8.5-10.1) L 8.6 MG/DL (8.5-10.1) White Blood Count 24.5 K/UL (4.8-10.8) *H Red Blood Count 3.56 M/UL (4.20-5.40) L Hemoglobin 11.0 G/DL (12.0-16.0) L Hematocrit 33.2 % (37.0-47.0) L Mean Corpuscular Volume 93 FL (80-99) Mean Corpuscular Hemoglobin 30.8 PG (27.0-31.0) Mean Corpuscular Hemoglobin Concent 33.1 G/DL (32.0-36.0) Red Cell Distribution Width 12.6 % (11.6-14.8) Platelet Count 351 K/UL (150-450) Mean Platelet Volume 6.6 FL (6.5-10.1) Neutrophils (%) (Auto) % (45.0-75.0) Lymphocytes (%) (Auto) % (20.0-45.0) Monocytes (%) (Auto) % (1.0-10.0) Eosinophils (%) (Auto) % (0.0-3.0) Basophils (%) (Auto) % (0.0-2.0) Differential Total Cells Counted 100 Neutrophils % (Manual) 95 % (45-75) H Lymphocytes % (Manual) 3 % (20-45) L Monocytes % (Manual) 2 % (1-10) Eosinophils % (Manual) 0 % (0-3) Basophils % (Manual) 0 % (0-2) Band Neutrophils 0 % (0-8) Platelet Estimate Adequate Platelet Morphology Normal Hypochromasia 1+ Total Bilirubin 0.3 MG/DL (0.2-1.0) Aspartate Amino Transf (AST/SGOT) 23 U/L (15-37) Alanine Aminotransferase (ALT/SGPT) 17 U/L (12-78) Alkaline Phosphatase 91 U/L (46-116) Total Protein 7.0 G/DL (6.4-8.2) Albumin 1.8 G/DL (3.4-5.0) L Globulin 5.2 g/dL Albumin/Globulin Ratio 0.3 (1.0-2.7) L Random Vancomycin Level 1.2 ug/mL Current Medications Medications (Trade) Dose Ordered Sig/[place] Route PRN Reason Start Time Stop Time Status Last Admin Dose Admin Acetaminophen (Tylenol) 650 mg Q6H PRN ORAL Mild Pain (Pain Scale 1-3) 01/28/20 06:15 02/27/20 06:14 01/28/20 07:57 Acetaminophen/ Hydrocodone Bitart ([place] 5/325) 1 tab Q6H PRN ORAL Moderate Pain (Pain Scale 4-6) 01/28/20 06:15 02/04/20 06:14 01/29/20 04:31 Amlodipine Besylate (Norvasc) 2.5 mg DAILY ORAL 01/28/20 09:00 02/27/20 08:59 01/29/20 08:35 Aspirin (Ecotrin) 81 mg DAILY ORAL 01/29/20 09:00 03/14/20 08:59 01/29/20 08:35 Hydralazine HCl (Apresoline) 25 mg Q6H PRN ORAL For High Blood Pressure 01/28/20 06:15 04/27/20 06:14 Hydromorphone HCl (Dilaudid) 0.5 mg Q3H PRN IVP Severe Pain (Pain Scale 7-10) 01/28/20 06:15 02/04/20 06:14 01/28/20 09:21 Ondansetron HCl (Zofran) 4 mg Q6H PRN IVP Nausea & Vomiting 01/28/20 06:15 02/27/20 06:14 01/28/20 10:43 Piperacillin Sod/ Tazobactam Sod 3.375 gm/Sodium Chloride 110 ml @ 27.5 mls/hr Q12HR IVPB 01/28/20 09:00 02/04/20 08:59 01/29/20 08:35 Potassium Chloride/Sodium Chloride 1,000 ml @ 75 mls/hr [id number] IV 01/28/20 08:00 02/27/20 07:59 01/28/20 21:34 Vancomycin HCl (Vanco pharmacy to dose) 1 ea DAILY PRN MISC Per rx protocol 01/29/20 10:45 02/28/20 10:44 Vancomycin HCl 1 gm/Sodium Chloride 275 ml @ 183.708 mls/hr ONCE ONCE IVPB 01/29/20 12:00 01/29/20 13:29 Vlad Kathleen MD Jan 29, 2020 12:28
--- NOTE | 2020-01-29 12:53 | Nephrology Progress Note ---
Assessment/Plan Assessment/Plan: A/P 1. VERO. No baseline creatinine is available. - Cr down to 1.2, prn IVFs - treat underlying UTI 2. Urinary tract infection. - Antibiotics to be adjusted by ID 3. Back pain. Being addressed by primary care physician. 4. Hypertension. Adjust medications as deemed appropriate. 5. Hypokalemia- corrected Subjective Date patient seen: Jan 29, 2020 Time patient seen: 12:51 ROS Limited/Unobtainable: Yes Allergies: Coded Allergies: No Known Allergies (Unverified , 01/28/20) Subjective Very sleepy but arousable Objective Last 24 Hour Vital Signs Date Time Temp Pulse Resp B/P (MAP) Pulse Ox O2 Delivery O2 Flow Rate FiO2 01/29/20 09:00 Room Air 01/29/20 08:35 74 121/57 01/29/20 08:00 98.4 74 20 121/57 (78) 94 01/29/20 05:01 98.4 01/29/20 04:37 98.4 74 20 137/87 (104) 98 01/29/20 00:09 98.0 80 22 132/87 (102) 94 01/28/20 21:00 Room Air 01/28/20 20:00 97.8 78 20 120/78 (92) 98 01/28/20 16:00 97.7 61 18 124/65 (84) 98 Intake and Output 01/28/20 01/29/20 19:00 07:00 Intake Total 1410 ml Output Total 500 ml 650 ml Balance 910 ml -650 ml Intake Oral 300 ml IV Total 1110 ml Output Urine Total 500 ml 650 ml Laboratory Tests 01/28/20 18:05: Sodium Level 142, Potassium Level 4.4#, Chloride Level 108H, Carbon Dioxide Level 25, Anion Gap 9, Blood Urea Nitrogen 23H, Creatinine 1.2, Estimat Glomerular Filtration Rate 52.0, Glucose Level 177H, Calcium Level 8.2L 01/29/20 05:45: Sodium Level 143, Potassium Level 4.0, Chloride Level 110H, Carbon Dioxide Level 22, Anion Gap 11, Blood Urea Nitrogen 24H, Creatinine 1.3, Estimat Glomerular Filtration Rate 47.4, Glucose Level 128H, Calcium Level 8.6, White Blood Count 24.5*H, Red Blood Count 3.56L, Hemoglobin 11.0L, Hematocrit 33.2L, Mean Corpuscular Volume 93, Mean Corpuscular Hemoglobin 30.8, Mean Corpuscular Hemoglobin Concent 33.1, Red Cell Distribution Width 12.6, Platelet Count 351, Mean Platelet Volume 6.6, Neutrophils (%) (Auto) , Lymphocytes (%) (Auto) , Monocytes (%) (Auto) , Eosinophils (%) (Auto) , Basophils (%) (Auto) , Differential Total Cells Counted 100, Neutrophils % (Manual) 95H, Lymphocytes % (Manual) 3L, Monocytes % (Manual) 2, Eosinophils % (Manual) 0, Basophils % ( Manual) 0, Band Neutrophils 0, Platelet Estimate Adequate, Platelet Morphology Normal, Hypochromasia 1+, Total Bilirubin 0.3, Aspartate Amino Transf (AST/SGOT ) 23, Alanine Aminotransferase (ALT/SGPT) 17, Alkaline Phosphatase 91, Total Protein 7.0, Albumin 1.8L, Globulin 5.2, Albumin/Globulin Ratio 0.3L, Random Vancomycin Level 1.2 Height (Feet): 5 Height (Inches): 1.00 Weight (Pounds): 139 General Appearance: no apparent distress EENT: normal ENT inspection Neck: normal alignment Cardiovascular: normal rate, regular rhythm Respiratory/Chest: lungs clear Abdomen: non tender, soft Edema: no edema noted Arm (L), no edema noted Arm (R), no edema noted Leg (L), no edema noted Leg (R), no edema noted Pedal (L), no edema noted Pedal (R), no edema noted Generalized Wu Hobbs MD Jan 29, 2020 12:53
[2020-01-29 16:00] VITALS: BP 143/69
[2020-01-29] MEDS: Hydromorphone 0.5mg/0.5ml inj IVP PRN (18:55)
[2020-01-29 20:00] VITALS: BP 131/66
[2020-01-30] VITALS: BP 138/68
[2020-01-30 04:00] VITALS: BP 136/65
[2020-01-30] MEDS: Hydromorphone 0.5mg/0.5ml inj IVP PRN ×4 (04:18→20:21)
[2020-01-30 07:12] LABS: ALANINE AMINOTRANSFERASE 20 U/L (12-78); ALBUMIN/GLOBULIN RATIO 0.4 (1.0-2.7); ALKALINE PHOSPHATASE 63 U/L (46-116); ANION GAP 10 mmol/L (5-15); ASPARTATE AMINO TRANSFERASE 27 U/L (15-37); BILIRUBIN,TOTAL 0.4 MG/DL (0.2-1.0); BLOOD UREA NITROGEN 27 mg/dL (7-18); CALCIUM 9.1 MG/DL (8.5-10.1); CARBON DIOXIDE 21 MMOL/L (21-32); CHLORIDE 111 MMOL/L (98-107); CREATININE 1.3 MG/DL (0.55-1.30); SODIUM 142 MMOL/L (136-145)
[2020-01-30 07:19] LABS: HEMATOCRIT 38.1 % (37.0-47.0); HEMOGLOBIN 12.3 G/DL (12.0-16.0); MEAN CORPUSCULAR VOLUME 94 FL (80-99); PLATELET COUNT 380 K/UL (150-450); RED BLOOD COUNT 4.04 M/UL (4.20-5.40); RED CELL DISTRIBUTION WIDTH 12.9 % (11.6-14.8); WHITE BLOOD COUNT 15.6 K/UL (4.8-10.8)
[2020-01-30 08:00] VITALS: BP 156/75
[2020-01-30] MEDS: Aspirin EC 81mg tab ORAL SCH (09:44)
[2020-01-30] MEDS: Piperacillin/Tazobactam 3.375 GM in NS 110 ML IVPB SCH ×2 (09:45→20:20)
--- NOTE | 2020-01-30 10:41 | Infectious Diseases Prog Note ---
Assessment/Plan Assessment/Plan antibiotics : vancomycin iv, zosyn A 1. gram positive sepsis 2. hypertension 3. ? pneumonia 4. leucocytosis improving P 1. continue iv vancomycin, zosyn 2. will follow up cultures Subjective Constitutional: Denies: fever, chills Respiratory: Reports: shortness of breath, dry cough Gastrointestinal/Abdominal: Denies: nausea, vomiting, diarrhea Musculoskeletal: Denies: pain Allergies: Coded Allergies: No Known Allergies (Unverified , 01/28/20) Objective Last 24 Hour Vital Signs Date Time Temp Pulse Resp B/P (MAP) Pulse Ox O2 Delivery O2 Flow Rate FiO2 01/30/20 09:45 102 156/75 01/30/20 04:48 98.7 01/30/20 04:00 98.6 76 19 136/65 (88) 94 01/30/20 00:00 98.3 79 20 138/68 (91) 94 01/29/20 21:00 Room Air 01/29/20 20:00 98.9 71 18 131/66 (87) 94 01/29/20 16:00 98.5 74 20 143/69 (93) 94 01/29/20 12:00 98.5 74 18 123/60 (81) 94 Height (Feet): 5 Height (Inches): 1.00 Weight (Pounds): 139 Respiratory/Chest: lungs clear Cardiovascular: normal rate, regular rhythm, no gallop/murmur Abdomen: soft, non tender Extremities: no edema Microbiology Date/Time Source Procedure Growth Status 01/28/20 06:00 Blood Blood Culture - Preliminary Gram Positive Cocci Resulted 01/28/20 05:45 Blood Blood Culture - Preliminary Gram Positive Cocci Resulted 01/28/20 11:10 Nasopharynx SARS-CoV-2 RdRp Gene Assay - Final Complete Laboratory Tests Test 01/30/20 05:35 White Blood Count 15.6 K/UL (4.8-10.8) H Red Blood Count 4.04 M/UL (4.20-5.40) L Hemoglobin 12.3 G/DL (12.0-16.0) Hematocrit 38.1 % (37.0-47.0) Mean Corpuscular Volume 94 FL (80-99) Mean Corpuscular Hemoglobin 30.4 PG (27.0-31.0) Mean Corpuscular Hemoglobin Concent 32.2 G/DL (32.0-36.0) Red Cell Distribution Width 12.9 % (11.6-14.8) Platelet Count 380 K/UL (150-450) Mean Platelet Volume 6.9 FL (6.5-10.1) Neutrophils (%) (Auto) % (45.0-75.0) Lymphocytes (%) (Auto) % (20.0-45.0) Monocytes (%) (Auto) % (1.0-10.0) Eosinophils (%) (Auto) % (0.0-3.0) Basophils (%) (Auto) % (0.0-2.0) Differential Total Cells Counted 100 Neutrophils % (Manual) 96 % (45-75) H Lymphocytes % (Manual) 1 % (20-45) L Monocytes % (Manual) 3 % (1-10) Eosinophils % (Manual) 0 % (0-3) Basophils % (Manual) 0 % (0-2) Band Neutrophils 0 % (0-8) Platelet Estimate Adequate Platelet Morphology Normal Red Blood Cell Morphology Normal Sodium Level 142 MMOL/L (136-145) Potassium Level 4.0 MMOL/L (3.5-5.1) Chloride Level 111 MMOL/L (98-107) H Carbon Dioxide Level 21 MMOL/L (21-32) Anion Gap 10 mmol/L (5-15) Blood Urea Nitrogen 27 mg/dL (7-18) H Creatinine 1.3 MG/DL (0.55-1.30) Estimat Glomerular Filtration Rate 47.4 mL/min (>60) Glucose Level 99 MG/DL (74-106) Calcium Level 9.1 MG/DL (8.5-10.1) Total Bilirubin 0.4 MG/DL (0.2-1.0) Aspartate Amino Transf (AST/SGOT) 27 U/L (15-37) Alanine Aminotransferase (ALT/SGPT) 20 U/L (12-78) Alkaline Phosphatase 63 U/L (46-116) Total Protein 7.5 G/DL (6.4-8.2) Albumin 2.0 G/DL (3.4-5.0) L Globulin 5.5 g/dL Albumin/Globulin Ratio 0.4 (1.0-2.7) L Random Vancomycin Level 10.3 ug/mL Current Medications Medications (Trade) Dose Ordered Sig/[place] Route PRN Reason Start Time Stop Time Status Last Admin Dose Admin Acetaminophen (Tylenol) 650 mg Q6H PRN ORAL Mild Pain (Pain Scale 1-3) 01/28/20 06:15 02/27/20 06:14 01/28/20 07:57 Acetaminophen/ Hydrocodone Bitart ([place] 5/325) 1 tab Q6H PRN ORAL Moderate Pain (Pain Scale 4-6) 01/28/20 06:15 02/04/20 06:14 01/29/20 04:31 Amlodipine Besylate (Norvasc) 2.5 mg DAILY ORAL 01/28/20 09:00 02/27/20 08:59 01/30/20 09:45 Aspirin (Ecotrin) 81 mg DAILY ORAL 01/29/20 09:00 03/14/20 08:59 01/30/20 09:44 Hydralazine HCl (Apresoline) 25 mg Q6H PRN ORAL For High Blood Pressure 01/28/20 06:15 04/27/20 06:14 Hydromorphone HCl (Dilaudid) 0.5 mg Q3H PRN IVP Severe Pain (Pain Scale 7-10) 01/28/20 06:15 02/04/20 06:14 01/30/20 04:18 Ondansetron HCl (Zofran) 4 mg Q6H PRN IVP Nausea & Vomiting 01/28/20 06:15 02/27/20 06:14 01/28/20 10:43 Piperacillin Sod/ Tazobactam Sod 3.375 gm/Sodium Chloride 110 ml @ 27.5 mls/hr Q12HR IVPB 01/28/20 09:00 02/04/20 08:59 01/30/20 09:45 Potassium Chloride/Sodium Chloride 1,000 ml @ 75 mls/hr [id number] IV 01/28/20 08:00 02/27/20 07:59 01/29/20 20:50 Vancomycin HCl (Vanco pharmacy to dose) 1 ea DAILY PRN MISC Per rx protocol 01/29/20 10:45 02/28/20 10:44 Vancomycin HCl 1 gm/Dextrose 275 ml @ 183.708 mls/hr ONCE ONCE IVPB 01/30/20 12:00 01/30/20 13:29 Chikis Leos MD Jan 30, 2020 10:41
[2020-01-30] MEDS ORDERED: LORazepam 0.5mg tab ORAL SCH (11:45)
[2020-01-30 12:00] VITALS: BP 165/85
[2020-01-30] MEDS ORDERED: Vancomycin 1gm/D5W 275ml IVPB ONE ×2 (12:00)
[2020-01-30] MEDS: NS w/KCl 20mEq 1000ml 1,000 ML IV SCH (13:20)
--- NOTE | 2020-01-30 13:30 | Pulmonology Progress Note ---
Subjective ROS Limited/Unobtainable: Yes Constitutional: Denies: fever, chills Gastrointestinal/Abdominal: Denies: nausea, vomiting, diarrhea Musculoskeletal: Denies: pain Allergies: Coded Allergies: No Known Allergies (Unverified , 01/28/20) Objective Last 24 Hour Vital Signs Date Time Temp Pulse Resp B/P (MAP) Pulse Ox O2 Delivery O2 Flow Rate FiO2 01/30/20 12:00 97.1 95 21 165/85 (111) 97 01/30/20 09:45 102 156/75 01/30/20 09:00 Room Air 01/30/20 08:00 98.9 102 21 156/75 (102) 97 01/30/20 04:48 98.7 01/30/20 04:00 98.6 76 19 136/65 (88) 94 01/30/20 00:00 98.3 79 20 138/68 (91) 94 01/29/20 21:00 Room Air 01/29/20 20:00 98.9 71 18 131/66 (87) 94 01/29/20 16:00 98.5 74 20 143/69 (93) 94 Intake and Output 01/29/20 01/30/20 19:00 07:00 Intake Total 500 ml Output Total 400 ml 400 ml Balance -400 ml 100 ml Intake Oral 500 ml Output Urine Total 400 ml 400 ml Microbiology Date/Time Source Procedure Growth Status 01/28/20 06:00 Blood Blood Culture - Preliminary Gram Positive Cocci Resulted 01/28/20 05:45 Blood Blood Culture - Preliminary Gram Positive Cocci Resulted 01/28/20 11:10 Nasopharynx SARS-CoV-2 RdRp Gene Assay - Final Complete Laboratory Tests 01/30/20 05:35: White Blood Count 15.6H, Red Blood Count 4.04L, Hemoglobin 12.3, Hematocrit 38.1 , Mean Corpuscular Volume 94, Mean Corpuscular Hemoglobin 30.4, Mean Corpuscular Hemoglobin Concent 32.2, Red Cell Distribution Width 12.9, Platelet Count 380, Mean Platelet Volume 6.9, Neutrophils (%) (Auto) , Lymphocytes (%) ( Auto) , Monocytes (%) (Auto) , Eosinophils (%) (Auto) , Basophils (%) (Auto) , Differential Total Cells Counted 100, Neutrophils % (Manual) 96H, Lymphocytes % (Manual) 1L, Monocytes % (Manual) 3, Eosinophils % (Manual) 0, Basophils % ( Manual) 0, Band Neutrophils 0, Platelet Estimate Adequate, Platelet Morphology Normal, Red Blood Cell Morphology Normal, Sodium Level 142, Potassium Level 4.0 , Chloride Level 111H, Carbon Dioxide Level 21, Anion Gap 10, Blood Urea Nitrogen 27H, Creatinine 1.3, Estimat Glomerular Filtration Rate 47.4, Glucose Level 99, Calcium Level 9.1, Total Bilirubin 0.4, Aspartate Amino Transf (AST/ SGOT) 27, Alanine Aminotransferase (ALT/SGPT) 20, Alkaline Phosphatase 63, Total Protein 7.5, Albumin 2.0L, Globulin 5.5, Albumin/Globulin Ratio 0.4L, Random Vancomycin Level 10.3 Current Medications Medications (Trade) Dose Ordered Sig/[place] Route PRN Reason Start Time Stop Time Status Last Admin Dose Admin Acetaminophen (Tylenol) 650 mg Q6H PRN ORAL Mild Pain (Pain Scale 1-3) 01/28/20 06:15 02/27/20 06:14 01/28/20 07:57 Acetaminophen/ Hydrocodone Bitart ([place] 5/325) 1 tab Q6H PRN ORAL Moderate Pain (Pain Scale 4-6) 01/28/20 06:15 02/04/20 06:14 01/29/20 04:31 Amlodipine Besylate (Norvasc) 2.5 mg DAILY ORAL 01/28/20 09:00 02/27/20 08:59 01/30/20 09:45 Aspirin (Ecotrin) 81 mg DAILY ORAL 01/29/20 09:00 03/14/20 08:59 01/30/20 09:44 Hydralazine HCl (Apresoline) 25 mg Q6H PRN ORAL For High Blood Pressure 01/28/20 06:15 04/27/20 06:14 Hydromorphone HCl (Dilaudid) 0.5 mg Q3H PRN IVP Severe Pain (Pain Scale 7-10) 01/28/20 06:15 02/04/20 06:14 01/30/20 11:19 Ondansetron HCl (Zofran) 4 mg Q6H PRN IVP Nausea & Vomiting 01/28/20 06:15 02/27/20 06:14 01/28/20 10:43 Piperacillin Sod/ Tazobactam Sod 3.375 gm/Sodium Chloride 110 ml @ 27.5 mls/hr Q12HR IVPB 01/28/20 09:00 02/04/20 08:59 01/30/20 09:45 Potassium Chloride/Sodium Chloride 1,000 ml @ 75 mls/hr [id number] IV 01/28/20 08:00 02/27/20 07:59 01/29/20 20:50 Vancomycin HCl (Vanco pharmacy to dose) 1 ea DAILY PRN MISC Per rx protocol 01/29/20 10:45 02/28/20 10:44 Vancomycin HCl 1 gm/Dextrose 275 ml @ 183.708 mls/hr ONCE ONCE IVPB 01/30/20 12:00 01/30/20 13:29 01/30/20 12:17 Assessment/Plan Assessment/Plan Progress Note HPI Patient admitted complaining of 2 weeks of worsening back pain. She denies any new weakness or numbness. There is no trauma. She denies fevers or chills. She has a history of Hypertension and ran out of her blood pressure medicine, History of Congestive Heart Failure on diuresis. She denies any cough or chest pain. She does complain of dysuria and some incontinence which is intermittent. No saddle numbness. ER Physician discussed the case with neurosurgery attending at [facility] who agreed that this was not true cauda equina syndrome and there is therefore no need for transfer for neurosurgery evaluation, as she was not complaining of any focal numbness or weakness or saddle anesthesia. No new complaints, on AB per ID for GPC in [place] Allergies: No Known Allergies Past Medical History: Hypertension, Pacemaker,Congestive Heart Failure Physical Exam Vital Signs Noted General Appearance: no apparent distress, GCS 15, non-toxic, obese Head: normocephalic Eyes: bilateral eye normal inspection, bilateral eye PERRL, bilateral eye EOMI ENT: dry mucus membranes Musculoskeletal: tender - lumbar area, no rafi tenderness - paraspinous tenderness - difficult as patient overweight, other - DJD of fingers and MCPs Neurologic: motor strength/tone normal, oriented x3, sensory intact, cerebellar normal, speech normal Skin: no rash, warm/dry, no edema Impression: Back pain Positive BC - GPC Leukocytosis Pulmonary Infiltrates, Covid 19 negative Elevated white blood cell count Spondylosis of lumbar spine Spinal stenosis Hypertension Pacemaker Congestive Heart Failure Renal impairment improving Plan: IV Antibiotics per ID Pain Medications PTAMedications Renal following Monitor labs IVF Collins catheter Laboratory Tests Noted BC: BPC both sets CT Lumbar Spine With Intravenous Contrast CLINICAL HISTORY: PAIN TECHNIQUE: Axial computed tomography images of the lumbar spine with intravenous contrast. CTDI is 11.40 mGy and DLP is 467.20 mGy-cm. One or more of the following dose reduction techniques were used: automated exposure control, adjustment of the mA and/or kV according to patient size, use of iterative reconstruction technique. COMPARISON: No relevant prior studies available. FINDINGS: The vertebral body heights are maintained. The lumbar lordosis is preserved. There is 6 mm of grade 1-2 anterolisthesis of L4 on L5 with uncovering of a disc bulge. No pars defects. Associated, severe spinal canal stenosis at this level. Likely some degree of mass-effect on the cauda equina nerve roots. Correlate with physical exam. Multilevel degenerative endplate changes, intervertebral disc space narrowing (severely involving L5-S1), and facet arthropathy. Multilevel bilateral foraminal stenosis, which is severe at L5-S1 bilaterally. Diffuse osseous demineralization. Collins catheter within a decompressed urinary bladder. IMPRESSION: No acute fracture of the lumbar spine. Multilevel degenerative changes, preferentially involving L4-5 where there is grade 1-2 anterolisthesis and severe spinal canal stenosis. Likely some degree of mass-effect on the cauda equina nerve roots. Correlate with physical exam. EKG:Rate: normal Rhythm: other - Atrial sensed pacemaker Other X-Ray Diagnostic Results : X-Ray LS spine: no soft tissue swelling, other - L45 offset [address]/MRI/US CT LS spine contrast No acute fracture of the lumbar spine. Multilevel degenerative changes, preferentially involving L4-5 where there is grade 1-2 anterolisthesis and severe spinal canal stenosis. Likely some degree of mass-effect on the cauda equina nerve roots. Darwin Moses MD Jan 30, 2020 13:30
[2020-01-30 16:00] VITALS: BP 148/87
[2020-01-30 19:59] VITALS: BP 155/85
--- NOTE | 2020-01-30 20:05 | Nephrology Progress Note ---
Assessment/Plan Problem List: (1) Bacteremia (2) VERO (acute kidney injury) (3) Dehydration (4) Back pain (5) Leukocytosis (6) Spondylosis of lumbar spine Plan continue hydration iv,trend lab, await further culture Subjective ROS Limited/Unobtainable: Yes Objective Objective Last 24 Hour Vital Signs Date Time Temp Pulse Resp B/P (MAP) Pulse Ox O2 Delivery O2 Flow Rate FiO2 01/30/20 19:59 97.9 93 20 155/85 (108) 93 01/30/20 16:00 98.6 96 20 148/87 (107) 98 01/30/20 12:00 97.1 95 21 165/85 (111) 97 01/30/20 09:45 102 156/75 01/30/20 09:00 Room Air 01/30/20 08:00 98.9 102 21 156/75 (102) 97 01/30/20 04:48 98.7 01/30/20 04:00 98.6 76 19 136/65 (88) 94 01/30/20 00:00 98.3 79 20 138/68 (91) 94 01/29/20 21:00 Room Air Intake and Output 01/29/20 01/30/20 19:00 07:00 Intake Total 500 ml Output Total 400 ml 400 ml Balance -400 ml 100 ml Intake Oral 500 ml Output Urine Total 400 ml 400 ml Laboratory Tests 01/30/20 05:35: White Blood Count 15.6H, Red Blood Count 4.04L, Hemoglobin 12.3, Hematocrit 38.1 , Mean Corpuscular Volume 94, Mean Corpuscular Hemoglobin 30.4, Mean Corpuscular Hemoglobin Concent 32.2, Red Cell Distribution Width 12.9, Platelet Count 380, Mean Platelet Volume 6.9, Neutrophils (%) (Auto) , Lymphocytes (%) ( Auto) , Monocytes (%) (Auto) , Eosinophils (%) (Auto) , Basophils (%) (Auto) , Differential Total Cells Counted 100, Neutrophils % (Manual) 96H, Lymphocytes % (Manual) 1L, Monocytes % (Manual) 3, Eosinophils % (Manual) 0, Basophils % ( Manual) 0, Band Neutrophils 0, Platelet Estimate Adequate, Platelet Morphology Normal, Red Blood Cell Morphology Normal, Sodium Level 142, Potassium Level 4.0 , Chloride Level 111H, Carbon Dioxide Level 21, Anion Gap 10, Blood Urea Nitrogen 27H, Creatinine 1.3, Estimat Glomerular Filtration Rate 47.4, Glucose Level 99, Calcium Level 9.1, Total Bilirubin 0.4, Aspartate Amino Transf (AST/ SGOT) 27, Alanine Aminotransferase (ALT/SGPT) 20, Alkaline Phosphatase 63, Total Protein 7.5, Albumin 2.0L, Globulin 5.5, Albumin/Globulin Ratio 0.4L, Random Vancomycin Level 10.3 Height (Feet): 5 Height (Inches): 1.00 Weight (Pounds): 139 General Appearance: lethargic EENT: normal ENT inspection Neck: normal alignment Cardiovascular: normal peripheral pulses Respiratory/Chest: lungs clear Abdomen: non tender Neurologic: steam box tender II-XII grossly normal Giovanny Jennings MD Jan 30, 2020 20:04
[2020-01-31] VITALS: BP 139/82
[2020-01-31] MEDS: Hydromorphone 0.5mg/0.5ml inj IVP PRN ×3 (03:51→22:35)
[2020-01-31 04:00] VITALS: BP 150/69
[2020-01-31 06:43] LABS: BASOPHILS % (AUTO) 1.2 % (0.0-2.0); EOSINOPHILS % (AUTO) 3.9 % (0.0-3.0); HEMATOCRIT 36.4 % (37.0-47.0); HEMOGLOBIN 11.8 G/DL (12.0-16.0); MEAN CORPUSCULAR VOLUME 94 FL (80-99); MONOCYTES % (AUTO) 3.8 % (1.0-10.0); NEUTROPHILS % (AUTO) 82.1 % (45.0-75.0); PLATELET COUNT 369 K/UL (150-450); RED BLOOD COUNT 3.89 M/UL (4.20-5.40); RED CELL DISTRIBUTION WIDTH 13.1 % (11.6-14.8); WHITE BLOOD COUNT 7.6 K/UL (4.8-10.8)
[2020-01-31 07:10] LABS: ANION GAP 9 mmol/L (5-15); BLOOD UREA NITROGEN 18 mg/dL (7-18); CALCIUM 8.6 MG/DL (8.5-10.1); CARBON DIOXIDE 22 MMOL/L (21-32); CHLORIDE 113 MMOL/L (98-107); CREATINE KINASE 16 U/L (26-308); CREATININE 1.1 MG/DL (0.55-1.30); POTASSIUM 4.3 MMOL/L (3.5-5.1); SODIUM 144 MMOL/L (136-145)
[2020-01-31 08:00] VITALS: BP 159/88
[2020-01-31] MEDS: NS w/KCl 20mEq 1000ml 1,000 ML IV SCH (08:00)
--- NOTE | 2020-01-31 08:07 | General Progress Note ---
Assessment/Plan Assessment/Plan: Impression: Back pain Positive BC - GPC Leukocytosis Pulmonary Infiltrates, Covid 19 negative Elevated white blood cell count Spondylosis of lumbar spine Spinal stenosis Hypertension Pacemaker Congestive Heart Failure Renal impairment improving Plan: IV Antibiotics per ID Pain Medications Renal follow up Monitor labs IVF Collins catheter and dc when able hope to stabilize and dc home with HH impression, plan, and exam edited and reviewed in detail care discussed with RN Subjective Allergies: Coded Allergies: No Known Allergies (Unverified , 01/28/20) Subjective still with back pain wbc better Objective Last 24 Hour Vital Signs Date Time Temp Pulse Resp B/P (MAP) Pulse Ox O2 Delivery O2 Flow Rate FiO2 01/31/20 04:00 98.8 86 19 150/69 (96) 97 01/31/20 00:00 98.4 78 20 139/82 (101) 97 01/30/20 21:00 Nasal Cannula 2.0 01/30/20 19:59 97.9 93 20 155/85 (108) 93 01/30/20 16:00 98.6 96 20 148/87 (107) 98 01/30/20 12:00 97.1 95 21 165/85 (111) 97 01/30/20 09:45 102 156/75 01/30/20 09:00 Room Air Intake and Output 01/30/20 01/31/20 19:00 07:00 Intake Total 170 ml 560 ml Output Total 600 ml 925 ml Balance -430 ml -365 ml Intake Oral 120 ml 360 ml IV Total 50 ml 200 ml Output Urine Total 600 ml 925 ml Laboratory Tests 01/31/20 05:45: White Blood Count 7.6#, Red Blood Count 3.89L, Hemoglobin 11.8L, Hematocrit 36.4L, Mean Corpuscular Volume 94, Mean Corpuscular Hemoglobin 30.3, Mean Corpuscular Hemoglobin Concent 32.4, Red Cell Distribution Width 13.1, Platelet Count 369, Mean Platelet Volume 6.7, Neutrophils (%) (Auto) 82.1H, Lymphocytes ( %) (Auto) 9.0L, Monocytes (%) (Auto) 3.8, Eosinophils (%) (Auto) 3.9H, Basophils (%) (Auto) 1.2, Sodium Level 144, Potassium Level 4.3, Chloride Level 113H, Carbon Dioxide Level 22, Anion Gap 9, Blood Urea Nitrogen 18, Creatinine 1.1, Estimat Glomerular Filtration Rate 57.4, Glucose Level 100, Calcium Level 8.6, Total Creatine Kinase 16L Height (Feet): 5 Height (Inches): 1.00 Weight (Pounds): 139 Objective WDWN NAD clear breath sounds bilaterally without rhonchi or wheeze [id number] without MRG NABS nontender no HSM no CCE nonfocal back pain noted Deon Grover MD Jan 31, 2020 08:07
[2020-01-31] MEDS: Piperacillin/Tazobactam 3.375 GM in NS 110 ML IVPB SCH (08:33)
[2020-01-31] MEDS: Aspirin EC 81mg tab ORAL SCH (08:33)
[2020-01-31] MEDS: HYDROcodone/Acetamin 5/325 tab ORAL PRN (08:35)
--- NOTE | 2020-01-31 10:51 | Infectious Diseases Prog Note ---
Assessment/Plan Assessment/Plan antibiotics : vancomycin iv, zosyn A 1. gram positive sepsis 2. hypertension 3. ? pneumonia 4. leucocytosis improving P 1. continue iv vancomycin 2. dc zosyn 3. will follow up cultures Subjective ROS Limited/Unobtainable: Yes Allergies: Coded Allergies: No Known Allergies (Unverified , 01/28/20) Objective Last 24 Hour Vital Signs Date Time Temp Pulse Resp B/P (MAP) Pulse Ox O2 Delivery O2 Flow Rate FiO2 01/31/20 08:33 100 159/88 01/31/20 08:10 Nasal Cannula 2.0 01/31/20 08:00 97.9 100 20 159/88 (111) 99 01/31/20 04:00 98.8 86 19 150/69 (96) 97 01/31/20 00:00 98.4 78 20 139/82 (101) 97 01/30/20 21:00 Nasal Cannula 2.0 01/30/20 19:59 97.9 93 20 155/85 (108) 93 01/30/20 16:00 98.6 96 20 148/87 (107) 98 01/30/20 12:00 97.1 95 21 165/85 (111) 97 Height (Feet): 5 Height (Inches): 1.00 Weight (Pounds): 139 Respiratory/Chest: lungs clear Cardiovascular: normal rate, regular rhythm, no gallop/murmur Abdomen: soft, non tender Extremities: no edema Microbiology Date/Time Source Procedure Growth Status 01/28/20 11:10 Nasopharynx SARS-CoV-2 RdRp Gene Assay - Final Complete Laboratory Tests Test 01/31/20 05:45 White Blood Count 7.6 K/UL (4.8-10.8) # Red Blood Count 3.89 M/UL (4.20-5.40) L Hemoglobin 11.8 G/DL (12.0-16.0) L Hematocrit 36.4 % (37.0-47.0) L Mean Corpuscular Volume 94 FL (80-99) Mean Corpuscular Hemoglobin 30.3 PG (27.0-31.0) Mean Corpuscular Hemoglobin Concent 32.4 G/DL (32.0-36.0) Red Cell Distribution Width 13.1 % (11.6-14.8) Platelet Count 369 K/UL (150-450) Mean Platelet Volume 6.7 FL (6.5-10.1) Neutrophils (%) (Auto) 82.1 % (45.0-75.0) H Lymphocytes (%) (Auto) 9.0 % (20.0-45.0) L Monocytes (%) (Auto) 3.8 % (1.0-10.0) Eosinophils (%) (Auto) 3.9 % (0.0-3.0) H Basophils (%) (Auto) 1.2 % (0.0-2.0) Sodium Level 144 MMOL/L (136-145) Potassium Level 4.3 MMOL/L (3.5-5.1) Chloride Level 113 MMOL/L (98-107) H Carbon Dioxide Level 22 MMOL/L (21-32) Anion Gap 9 mmol/L (5-15) Blood Urea Nitrogen 18 mg/dL (7-18) Creatinine 1.1 MG/DL (0.55-1.30) Estimat Glomerular Filtration Rate 57.4 mL/min (>60) Glucose Level 100 MG/DL (74-106) Calcium Level 8.6 MG/DL (8.5-10.1) Total Creatine Kinase 16 U/L (26-308) L Current Medications Medications (Trade) Dose Ordered Sig/[place] Route PRN Reason Start Time Stop Time Status Last Admin Dose Admin Acetaminophen (Tylenol) 650 mg Q6H PRN ORAL Mild Pain (Pain Scale 1-3) 01/28/20 06:15 02/27/20 06:14 01/28/20 07:57 Acetaminophen/ Hydrocodone Bitart ([place] 5/325) 1 tab Q6H PRN ORAL Moderate Pain (Pain Scale 4-6) 01/28/20 06:15 02/04/20 06:14 01/31/20 08:35 Amlodipine Besylate (Norvasc) 2.5 mg DAILY ORAL 01/28/20 09:00 02/27/20 08:59 01/31/20 08:33 Aspirin (Ecotrin) 81 mg DAILY ORAL 01/29/20 09:00 03/14/20 08:59 01/31/20 08:33 Hydralazine HCl (Apresoline) 25 mg Q6H PRN ORAL For High Blood Pressure 01/28/20 06:15 04/27/20 06:14 Hydromorphone HCl (Dilaudid) 0.5 mg Q3H PRN IVP Severe Pain (Pain Scale 7-10) 01/28/20 06:15 02/04/20 06:14 01/31/20 03:51 Ondansetron HCl (Zofran) 4 mg Q6H PRN IVP Nausea & Vomiting 01/28/20 06:15 02/27/20 06:14 01/28/20 10:43 Piperacillin Sod/ Tazobactam Sod 3.375 gm/Sodium Chloride 110 ml @ 27.5 mls/hr Q8H IVPB 01/31/20 17:00 02/07/20 16:59 Potassium Chloride/Sodium Chloride 1,000 ml @ 50 mls/hr Q20H IV 01/31/20 08:00 03/01/20 07:59 Vancomycin HCl (Vanco pharmacy to dose) 1 ea DAILY PRN MISC Per rx protocol 01/29/20 10:45 02/28/20 10:44 Chikis Leos MD Jan 31, 2020 10:51
[2020-01-31 12:00] VITALS: BP 157/74
[2020-01-31 16:00] VITALS: BP 157/104
[2020-01-31] MEDS ORDERED: CHLORTHALIDONE25 MG ORAL (16:00)
[2020-01-31] MEDS ORDERED: HYDROCHLOROTHIA25 MG ORAL (16:00)
[2020-01-31] MEDS ORDERED: Piperacillin/Tazobactam 3.375 GM in NS 110 ML IVPB SCH (17:00)
[2020-01-31 20:00] VITALS: BP 153/83
--- NOTE | 2020-01-31 21:15 | Nephrology Progress Note ---
Assessment/Plan Problem List: (1) Bacteremia (2) VERO (acute kidney injury) (3) Dehydration (4) Back pain (5) Leukocytosis (6) Spondylosis of lumbar spine Plan continue hydration iv,trend lab, await further culture Subjective ROS Limited/Unobtainable: Yes Objective Objective Last 24 Hour Vital Signs Date Time Temp Pulse Resp B/P (MAP) Pulse Ox O2 Delivery O2 Flow Rate FiO2 01/31/20 16:00 97.6 111 20 157/104 (121) 98 01/31/20 12:00 98.3 86 21 157/74 (101) 99 01/31/20 08:33 100 159/88 01/31/20 08:10 Nasal Cannula 2.0 01/31/20 08:00 97.9 100 20 159/88 (111) 99 01/31/20 04:00 98.8 86 19 150/69 (96) 97 01/31/20 00:00 98.4 78 20 139/82 (101) 97 Intake and Output 01/30/20 01/31/20 19:00 07:00 Intake Total 170 ml 560 ml Output Total 600 ml 925 ml Balance -430 ml -365 ml Intake Oral 120 ml 360 ml IV Total 50 ml 200 ml Output Urine Total 600 ml 925 ml Laboratory Tests 01/31/20 05:45: White Blood Count 7.6#, Red Blood Count 3.89L, Hemoglobin 11.8L, Hematocrit 36.4L, Mean Corpuscular Volume 94, Mean Corpuscular Hemoglobin 30.3, Mean Corpuscular Hemoglobin Concent 32.4, Red Cell Distribution Width 13.1, Platelet Count 369, Mean Platelet Volume 6.7, Neutrophils (%) (Auto) 82.1H, Lymphocytes ( %) (Auto) 9.0L, Monocytes (%) (Auto) 3.8, Eosinophils (%) (Auto) 3.9H, Basophils (%) (Auto) 1.2, Sodium Level 144, Potassium Level 4.3, Chloride Level 113H, Carbon Dioxide Level 22, Anion Gap 9, Blood Urea Nitrogen 18, Creatinine 1.1, Estimat Glomerular Filtration Rate 57.4, Glucose Level 100, Calcium Level 8.6, Total Creatine Kinase 16L Height (Feet): 5 Height (Inches): 1.00 Weight (Pounds): 139 General Appearance: alert, confused EENT: normal ENT inspection Neck: normal alignment Cardiovascular: normal rate, regular rhythm Respiratory/Chest: lungs clear Abdomen: non tender, soft Extremities: non-tender, normal inspection 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
[2020-02-01] VITALS: BP 141/75
[2020-02-01] MEDS: NS w/KCl 20mEq 1000ml 1,000 ML IV SCH ×2 (03:00→23:27)
[2020-02-01 04:00] VITALS: BP 150/80
[2020-02-01] MEDS: Hydromorphone 0.5mg/0.5ml inj IVP PRN ×3 (04:45→23:18)
[2020-02-01 08:00] VITALS: BP 149/85
[2020-02-01] MEDS: Aspirin EC 81mg tab ORAL SCH (08:37)
[2020-02-01] MEDS: Vancomycin 1gm/D5W 275ml IVPB SCH ×2 (08:37)
--- NOTE | 2020-02-01 10:50 | Infectious Diseases Prog Note ---
Assessment/Plan Assessment/Plan antibiotics : vancomycin iv A 1. gram positive sepsis 2. hypertension 3. ? pneumonia 4. leucocytosis resolved P 1. continue iv vancomycin 2. will follow up cultures Subjective ROS Limited/Unobtainable: Yes Allergies: Coded Allergies: No Known Allergies (Unverified , 01/28/20) Objective Last 24 Hour Vital Signs Date Time Temp Pulse Resp B/P (MAP) Pulse Ox O2 Delivery O2 Flow Rate FiO2 02/01/20 09:00 Nasal Cannula 2.0 02/01/20 08:37 97 149/85 02/01/20 08:00 98.1 97 18 149/85 (106) 95 02/01/20 04:00 98.2 82 18 150/80 (103) 95 02/01/20 00:00 99.7 83 19 141/75 (97) 96 01/31/20 21:00 Nasal Cannula 2.0 01/31/20 20:00 98.2 84 20 153/83 (106) 96 01/31/20 16:00 97.6 111 20 157/104 (121) 98 01/31/20 12:00 98.3 86 21 157/74 (101) 99 Height (Feet): 5 Height (Inches): 1.00 Weight (Pounds): 139 Respiratory/Chest: lungs clear Cardiovascular: normal rate, regular rhythm, no gallop/murmur Abdomen: soft, non tender Extremities: no edema Microbiology Date/Time Source Procedure Growth Status 01/31/20 00:30 Indwelling Cath Urine Culture - Preliminary NO GROWTH Resulted Laboratory Tests Test 02/01/20 04:45 Random Vancomycin Level 6.0 ug/mL Current Medications Medications (Trade) Dose Ordered Sig/[place] Route PRN Reason Start Time Stop Time Status Last Admin Dose Admin Acetaminophen (Tylenol) 650 mg Q6H PRN ORAL Mild Pain (Pain Scale 1-3) 01/28/20 06:15 02/27/20 06:14 01/28/20 07:57 Acetaminophen/ Hydrocodone Bitart ([place] 5/325) 1 tab Q6H PRN ORAL Moderate Pain (Pain Scale 4-6) 01/28/20 06:15 02/04/20 06:14 01/31/20 08:35 Amlodipine Besylate (Norvasc) 2.5 mg DAILY ORAL 01/28/20 09:00 02/27/20 08:59 02/01/20 08:37 Aspirin (Ecotrin) 81 mg DAILY ORAL 01/29/20 09:00 03/14/20 08:59 02/01/20 08:37 Hydralazine HCl (Apresoline) 25 mg Q6H PRN ORAL For High Blood Pressure 01/28/20 06:15 04/27/20 06:14 Hydromorphone HCl (Dilaudid) 0.5 mg Q3H PRN IVP Severe Pain (Pain Scale 7-10) 01/28/20 06:15 02/04/20 06:14 02/01/20 04:45 Ondansetron HCl (Zofran) 4 mg Q6H PRN IVP Nausea & Vomiting 01/28/20 06:15 02/27/20 06:14 01/28/20 10:43 Potassium Chloride/Sodium Chloride 1,000 ml @ 50 mls/hr Q20H IV 01/31/20 08:00 03/01/20 07:59 02/01/20 03:00 Vancomycin HCl (Vanco pharmacy to dose) 1 ea DAILY PRN MISC Per rx protocol 01/29/20 10:45 02/28/20 10:44 Vancomycin HCl 1 gm/Dextrose 275 ml @ 183.708 mls/hr Q24H IVPB 02/01/20 09:00 02/06/20 08:59 02/01/20 08:37 Chikis Leos MD Feb 01, 2020 10:50
[2020-02-01 12:00] VITALS: BP 133/106
[2020-02-01 16:00] VITALS: BP 152/97
--- NOTE | 2020-02-01 17:43 | General Progress Note ---
Assessment/Plan Assessment/Plan: Impression: Back pain Positive BC - GPC Leukocytosis Pulmonary Infiltrates, Covid 19 negative Elevated white blood cell count Spondylosis of lumbar spine Spinal stenosis Hypertension Pacemaker Congestive Heart Failure Renal impairment improving Plan: IV Antibiotics per ID Pain Medications Renal follow up Monitor labs IVF Collins catheter and dc when able hope to stabilize and dc home with HH will await ID clearance impression, plan, and exam edited and reviewed in detail care discussed with RN Subjective Allergies: Coded Allergies: No Known Allergies (Unverified , 01/28/20) Subjective overall improved less pain wbc now normal Objective Last 24 Hour Vital Signs Date Time Temp Pulse Resp B/P (MAP) Pulse Ox O2 Delivery O2 Flow Rate FiO2 02/01/20 16:00 97.2 95 18 152/97 (115) 95 02/01/20 12:00 97.4 98 20 133/106 (115) 95 02/01/20 09:00 Nasal Cannula 2.0 02/01/20 08:37 97 149/85 02/01/20 08:00 98.1 97 18 149/85 (106) 95 02/01/20 04:00 98.2 82 18 150/80 (103) 95 02/01/20 00:00 99.7 83 19 141/75 (97) 96 01/31/20 21:00 Nasal Cannula 2.0 01/31/20 20:00 98.2 84 20 153/83 (106) 96 Intake and Output 01/31/20 02/01/20 19:00 07:00 Intake Total 500 ml Output Total 1200 ml 475 ml Balance -1200 ml 25 ml Intake Oral 500 ml Output Urine Total 1200 ml 475 ml Laboratory Tests 02/01/20 04:45: Random Vancomycin Level 6.0 Height (Feet): 5 Height (Inches): 1.00 Weight (Pounds): 139 Objective WDWN NAD clear breath sounds bilaterally without rhonchi or wheeze [id number] without MRG NABS nontender no HSM no CCE nonfocal back pain noted Deon Grover MD Feb 01, 2020 17:43
[2020-02-01 20:00] VITALS: BP 124/75
[2020-02-02] VITALS: BP 121/76
[2020-02-02] MEDS: HYDROcodone/Acetamin 5/325 tab ORAL PRN ×3 (00:56→20:11)
[2020-02-02 04:00] VITALS: BP 129/68
--- NOTE | 2020-02-02 07:58 | General Progress Note ---
Assessment/Plan Assessment/Plan: Impression: Back pain Positive BC - GPC Leukocytosis Pulmonary Infiltrates, Covid 19 negative Elevated white blood cell count Spondylosis of lumbar spine Spinal stenosis Hypertension Pacemaker Congestive Heart Failure Renal impairment improving Plan: IV Antibiotics per ID Pain Medications Renal follow up Monitor labs IVF Collins catheter and dc when able hope to stabilize and dc home with HH will await ID clearance and proceed with dc planning impression, plan, and exam edited and reviewed in detail care discussed with RN Subjective Allergies: Coded Allergies: No Known Allergies (Unverified , 01/28/20) Subjective overall same less pain wbc now normal Objective Last 24 Hour Vital Signs Date Time Temp Pulse Resp B/P (MAP) Pulse Ox O2 Delivery O2 Flow Rate FiO2 02/02/20 04:00 99.0 80 18 129/68 (88) 95 02/02/20 00:00 98.2 80 18 121/76 (91) 98 02/01/20 21:00 Nasal Cannula 2.0 02/01/20 20:00 99.0 85 19 124/75 (91) 97 02/01/20 16:00 97.2 95 18 152/97 (115) 95 02/01/20 12:00 97.4 98 20 133/106 (115) 95 02/01/20 09:00 Nasal Cannula 2.0 02/01/20 08:37 97 149/85 02/01/20 08:00 98.1 97 18 149/85 (106) 95 Intake and Output 02/01/20 02/02/20 19:00 07:00 Intake Total 120 ml 200 ml Output Total 300 ml 200 ml Balance -180 ml 0 ml Intake Oral 120 ml 200 ml Output Urine Total 300 ml 200 ml # Voids 1 # Bowel Movements 1 Height (Feet): 5 Height (Inches): 1.00 Weight (Pounds): 139 Objective WDWN NAD clear breath sounds bilaterally without rhonchi or wheeze [id number] without MRG NABS nontender no HSM no CCE nonfocal back pain noted Deon Grover MD Feb 02, 2020 07:57
[2020-02-02 08:00] VITALS: BP 112/69
[2020-02-02] MEDS: Vancomycin 1gm/D5W 275ml IVPB SCH ×2 (09:27)
[2020-02-02] MEDS: Aspirin EC 81mg tab ORAL SCH (09:28)
[2020-02-02 10:40] LABS: BASOPHILS % (AUTO) 2.1 % (0.0-2.0); EOSINOPHILS % (AUTO) 8.1 % (0.0-3.0); HEMATOCRIT 35.4 % (37.0-47.0); HEMOGLOBIN 11.5 G/DL (12.0-16.0); LYMPHOCYTES % (AUTO) 9.5 % (20.0-45.0); MEAN CORPUSCULAR VOLUME 93 FL (80-99); MONOCYTES % (AUTO) 6.3 % (1.0-10.0); NEUTROPHILS % (AUTO) 73.9 % (45.0-75.0); PLATELET COUNT 331 K/UL (150-450); RED BLOOD COUNT 3.81 M/UL (4.20-5.40); RED CELL DISTRIBUTION WIDTH 13.3 % (11.6-14.8); WHITE BLOOD COUNT 7.6 K/UL (4.8-10.8)
[2020-02-02 10:44] LABS: ANION GAP 7 mmol/L (5-15); BLOOD UREA NITROGEN 13 mg/dL (7-18); CALCIUM 8.5 MG/DL (8.5-10.1); CARBON DIOXIDE 26 MMOL/L (21-32); CHLORIDE 109 MMOL/L (98-107); POTASSIUM 4.1 MMOL/L (3.5-5.1); SODIUM 142 MMOL/L (136-145)
[2020-02-02 12:00] VITALS: BP 131/67
--- NOTE | 2020-02-02 13:55 | Infectious Diseases Prog Note ---
Assessment/Plan Assessment/Plan A; 1. Sepsis with gram positive cocci 2. Atelectasis/ pneumonia 3. Hypertension. 4. Congestive heart failure. 5. Leukocytosis resolved 6. Spinal stenosis/ back pain PLAN: 1. Continue IV vancomycin. 2.We will follow up cultures. Subjective ROS Limited/Unobtainable: Yes Allergies: Coded Allergies: No Known Allergies (Unverified , 01/28/20) Objective Last 24 Hour Vital Signs Date Time Temp Pulse Resp B/P (MAP) Pulse Ox O2 Delivery O2 Flow Rate FiO2 02/02/20 12:00 97.8 74 16 131/67 (88) 96 02/02/20 09:28 83 112/69 02/02/20 08:00 98.1 83 16 112/69 (83) 97 02/02/20 04:00 99.0 80 18 129/68 (88) 95 02/02/20 00:00 98.2 80 18 121/76 (91) 98 02/01/20 21:00 Nasal Cannula 2.0 02/01/20 20:00 99.0 85 19 124/75 (91) 97 02/01/20 16:00 97.2 95 18 152/97 (115) 95 Height (Feet): 5 Height (Inches): 1.00 Weight (Pounds): 139 General Appearance: no acute distress HEENT: mucous membranes moist Respiratory/Chest: lungs clear Cardiovascular: normal rate Abdomen: soft, non tender Extremities: no edema Neurologic/Psychiatric: other - sleeping Microbiology Date/Time Source Procedure Growth Status 01/31/20 00:30 Indwelling Cath Urine Culture - Preliminary NO GROWTH AFTER 24 HOURS Resulted Laboratory Tests Test 02/02/20 10:25 White Blood Count 7.6 K/UL (4.8-10.8) Red Blood Count 3.81 M/UL (4.20-5.40) L Hemoglobin 11.5 G/DL (12.0-16.0) L Hematocrit 35.4 % (37.0-47.0) L Mean Corpuscular Volume 93 FL (80-99) Mean Corpuscular Hemoglobin 30.3 PG (27.0-31.0) Mean Corpuscular Hemoglobin Concent 32.6 G/DL (32.0-36.0) Red Cell Distribution Width 13.3 % (11.6-14.8) Platelet Count 331 K/UL (150-450) Mean Platelet Volume 7.5 FL (6.5-10.1) Neutrophils (%) (Auto) 73.9 % (45.0-75.0) Lymphocytes (%) (Auto) 9.5 % (20.0-45.0) L Monocytes (%) (Auto) 6.3 % (1.0-10.0) Eosinophils (%) (Auto) 8.1 % (0.0-3.0) H Basophils (%) (Auto) 2.1 % (0.0-2.0) H Sodium Level 142 MMOL/L (136-145) Potassium Level 4.1 MMOL/L (3.5-5.1) Chloride Level 109 MMOL/L (98-107) H Carbon Dioxide Level 26 MMOL/L (21-32) Anion Gap 7 mmol/L (5-15) Blood Urea Nitrogen 13 mg/dL (7-18) Creatinine 1.0 MG/DL (0.55-1.30) Estimat Glomerular Filtration Rate > 60 mL/min (>60) Glucose Level 111 MG/DL (74-106) H Calcium Level 8.5 MG/DL (8.5-10.1) Current Medications Medications (Trade) Dose Ordered Sig/[place] Route PRN Reason Start Time Stop Time Status Last Admin Dose Admin Acetaminophen (Tylenol) 650 mg Q6H PRN ORAL Mild Pain (Pain Scale 1-3) 01/28/20 06:15 02/27/20 06:14 02/02/20 06:04 Acetaminophen/ Hydrocodone Bitart ([place] 5/325) 1 tab Q6H PRN ORAL Moderate Pain (Pain Scale 4-6) 01/28/20 06:15 02/04/20 06:14 02/02/20 10:37 Amlodipine Besylate (Norvasc) 2.5 mg DAILY ORAL 01/28/20 09:00 02/27/20 08:59 02/02/20 09:28 Aspirin (Ecotrin) 81 mg DAILY ORAL 01/29/20 09:00 03/14/20 08:59 02/02/20 09:28 Hydralazine HCl (Apresoline) 25 mg Q6H PRN ORAL For High Blood Pressure 01/28/20 06:15 04/27/20 06:14 Hydromorphone HCl (Dilaudid) 0.5 mg Q3H PRN IVP Severe Pain (Pain Scale 7-10) 01/28/20 06:15 02/04/20 06:14 02/01/20 23:18 Ondansetron HCl (Zofran) 4 mg Q6H PRN IVP Nausea & Vomiting 01/28/20 06:15 02/27/20 06:14 02/01/20 15:55 Potassium Chloride/Sodium Chloride 1,000 ml @ 50 mls/hr Q20H IV 01/31/20 08:00 03/01/20 07:59 02/01/20 23:27 Vancomycin HCl (Vanco pharmacy to dose) 1 ea DAILY PRN MISC Per rx protocol 01/29/20 10:45 02/28/20 10:44 Vancomycin HCl 1 gm/Dextrose 275 ml @ 183.708 mls/hr Q24H IVPB 02/01/20 09:00 02/06/20 08:59 02/02/20 09:27 Vlad Kathleen MD Feb 02, 2020 13:55
[2020-02-02 16:00] VITALS: BP 137/69
[2020-02-02] MEDS: NS w/KCl 20mEq 1000ml 1,000 ML IV SCH (17:44)
[2020-02-02] MEDS ORDERED: NS 275ml ONE (19:05)
[2020-02-02 20:00] VITALS: BP 155/83
[2020-02-03] VITALS: BP_SYST 145; BP_SYST 155; BP_DIAS 83
[2020-02-03 04:00] VITALS: BP 152/89
[2020-02-03 08:00] VITALS: BP 154/78
[2020-02-03] MEDS: Aspirin EC 81mg tab ORAL SCH (08:25)
[2020-02-03] MEDS: HYDROcodone/Acetamin 5/325 tab ORAL PRN ×2 (08:26→19:49)
[2020-02-03] MEDS: Vancomycin 1gm/D5W 275ml IVPB SCH ×2 (08:26)
--- NOTE | 2020-02-03 08:38 | General Progress Note ---
Assessment/Plan Assessment/Plan: Impression: Back pain MRSA bacteremia Leukocytosis Pulmonary Infiltrates, Covid 19 negative Elevated white blood cell count Spondylosis of lumbar spine Spinal stenosis Hypertension Pacemaker Congestive Heart Failure Renal impairment improving Plan: IV Antibiotics per ID Pain Medications Renal follow up Monitor labs IVF - dc Collins catheter and dc when able CXR follow up hope to stabilize and dc home with HH will await ID clearance and proceed with dc planning update family impression, plan, and exam edited and reviewed in detail care discussed with RN Subjective Allergies: Coded Allergies: No Known Allergies (Unverified , 01/28/20) Subjective overall same comfortable MRSA bacteremia wbc now normal Objective Last 24 Hour Vital Signs Date Time Temp Pulse Resp B/P (MAP) Pulse Ox O2 Delivery O2 Flow Rate FiO2 02/03/20 08:25 85 154/78 02/03/20 08:00 96.7 85 18 154/78 (103) 98 02/03/20 04:00 97.2 70 18 152/89 (110) 98 02/03/20 00:00 98.4 68 17 145/83 (103) 96 02/02/20 21:00 Nasal Cannula 2.0 02/02/20 20:00 98.6 88 17 155/83 (107) 95 02/02/20 16:00 98.1 70 16 137/69 (91) 96 02/02/20 12:00 97.8 74 16 131/67 (88) 96 02/02/20 09:28 83 112/69 02/02/20 09:00 Nasal Cannula 2.0 Intake and Output 02/02/20 02/03/20 19:00 07:00 Intake Total 1100 ml 600 ml Output Total 250 ml 550 ml Balance 850 ml 50 ml Intake Oral 600 ml IV Total 500 ml 600 ml Output Urine Total 250 ml 550 ml # Bowel Movements 2 1 Laboratory Tests 02/02/20 10:25: White Blood Count 7.6, Red Blood Count 3.81L, Hemoglobin 11.5L, Hematocrit 35.4L , Mean Corpuscular Volume 93, Mean Corpuscular Hemoglobin 30.3, Mean Corpuscular Hemoglobin Concent 32.6, Red Cell Distribution Width 13.3, Platelet Count 331, Mean Platelet Volume 7.5, Neutrophils (%) (Auto) 73.9, Lymphocytes (% ) (Auto) 9.5L, Monocytes (%) (Auto) 6.3, Eosinophils (%) (Auto) 8.1H, Basophils (%) (Auto) 2.1H, Sodium Level 142, Potassium Level 4.1, Chloride Level 109H, Carbon Dioxide Level 26, Anion Gap 7, Blood Urea Nitrogen 13, Creatinine 1.0, Estimat Glomerular Filtration Rate > 60, Glucose Level 111H, Calcium Level 8.5 Height (Feet): 5 Height (Inches): 1.00 Weight (Pounds): 139 Objective WDWN NAD clear breath sounds bilaterally without rhonchi or wheeze [id number] without MRG NABS nontender no HSM no CCE nonfocal back pain noted Deon Grover MD Feb 03, 2020 08:38
--- NOTE | 2020-02-03 11:03 | Infectious Diseases Prog Note ---
Assessment/Plan Assessment/Plan antibiotics : vancomycin iv A 1. MRSA sepsis 2. hypertension 3. ? pneumonia 4. leucocytosis resolved P 1. continue iv vancomycin 2. will follow up cultures 3. 2 d echo Subjective Constitutional: Denies: fever, chills Respiratory: Denies: shortness of breath, dry cough Gastrointestinal/Abdominal: Denies: nausea, vomiting, diarrhea Musculoskeletal: Reports: pain - in right back Allergies: Coded Allergies: No Known Allergies (Unverified , 01/28/20) Objective Last 24 Hour Vital Signs Date Time Temp Pulse Resp B/P (MAP) Pulse Ox O2 Delivery O2 Flow Rate FiO2 02/03/20 09:00 Nasal Cannula 2.0 02/03/20 08:25 85 154/78 02/03/20 08:00 96.7 85 18 154/78 (103) 98 02/03/20 04:00 97.2 70 18 152/89 (110) 98 02/03/20 00:00 98.4 68 17 145/83 (103) 96 02/02/20 21:00 Nasal Cannula 2.0 02/02/20 20:00 98.6 88 17 155/83 (107) 95 02/02/20 16:00 98.1 70 16 137/69 (91) 96 02/02/20 12:00 97.8 74 16 131/67 (88) 96 Height (Feet): 5 Height (Inches): 1.00 Weight (Pounds): 139 Respiratory/Chest: lungs clear Cardiovascular: normal rate, regular rhythm, no gallop/murmur Abdomen: soft, non tender Extremities: no edema Musculoskeletal: other - right CVA tenderness Current Medications Medications (Trade) Dose Ordered Sig/[place] Route PRN Reason Start Time Stop Time Status Last Admin Dose Admin Acetaminophen (Tylenol) 650 mg Q6H PRN ORAL Mild Pain (Pain Scale 1-3) 01/28/20 06:15 02/27/20 06:14 02/02/20 06:04 Acetaminophen/ Hydrocodone Bitart ([place] 5/325) 1 tab Q6H PRN ORAL Moderate Pain (Pain Scale 4-6) 01/28/20 06:15 02/04/20 06:14 02/03/20 08:26 Amlodipine Besylate (Norvasc) 2.5 mg DAILY ORAL 01/28/20 09:00 02/27/20 08:59 02/03/20 08:25 Aspirin (Ecotrin) 81 mg DAILY ORAL 01/29/20 09:00 03/14/20 08:59 02/03/20 08:25 Hydralazine HCl (Apresoline) 25 mg Q6H PRN ORAL For High Blood Pressure 01/28/20 06:15 04/27/20 06:14 Hydromorphone HCl (Dilaudid) 0.5 mg Q3H PRN IVP Severe Pain (Pain Scale 7-10) 01/28/20 06:15 02/04/20 06:14 02/01/20 23:18 Ondansetron HCl (Zofran) 4 mg Q6H PRN IVP Nausea & Vomiting 01/28/20 06:15 02/27/20 06:14 02/01/20 15:55 Potassium Chloride/Sodium Chloride 1,000 ml @ 50 mls/hr Q20H IV 01/31/20 08:00 03/01/20 07:59 02/02/20 17:44 Vancomycin HCl (Vanco pharmacy to dose) 1 ea DAILY PRN MISC Per rx protocol 01/29/20 10:45 02/28/20 10:44 Vancomycin HCl 1 gm/Dextrose 275 ml @ 183.708 mls/hr Q24H IVPB 02/01/20 09:00 02/06/20 08:59 02/03/20 08:26 Chikis Leos MD Feb 03, 2020 11:03
[2020-02-03 12:00] VITALS: BP 153/76
[2020-02-03] MEDS: NS w/KCl 20mEq 1000ml 1,000 ML IV SCH (15:20)
--- NOTE | 2020-02-03 15:29 | Diagnostic Imaging Report ---
Indication: Cough Technique: One view of the chest Comparison: 01/28/2020 Findings: Interim development of a moderate-sized left pleural effusion. There is also evidence of a small right pleural effusion. Bilateral interstitial disease is demonstrated, appears somewhat increased. Left chest pacemaker is again demonstrated. The heart is enlarged. Impression: New or increased bilateral pleural effusions. Increased interstitial opacities likely reflect worsening pulmonary edema.
[2020-02-03 16:00] VITALS: BP 146/67
[2020-02-03 20:00] VITALS: BP 119/54
[2020-02-04] VITALS: BP 149/76
[2020-02-04 04:00] VITALS: BP 155/75
[2020-02-04] MEDS: HYDROcodone/Acetamin 5/325 tab ORAL PRN ×2 (06:09→21:03)
[2020-02-04 08:00] VITALS: BP 144/80
[2020-02-04] MEDS: Aspirin EC 81mg tab ORAL SCH (09:23)
[2020-02-04] MEDS: Vancomycin 1.25gm/NS Premix IVPB SCH (11:22)
[2020-02-04 12:00] VITALS: BP 143/86
--- NOTE | 2020-02-04 13:46 | General Progress Note ---
Assessment/Plan Assessment/Plan: Impression: Back pain MRSA bacteremia Leukocytosis Pulmonary Infiltrates, Covid 19 negative Elevated white blood cell count Spondylosis of lumbar spine Spinal stenosis Hypertension Pacemaker Congestive Heart Failure Renal impairment improving Plan: IV Antibiotics per ID Pain Medications Renal follow up Monitor labs IVF - dc Collins catheter dc hope to stabilize and dc home with HH will await ID clearance and proceed with dc planning update family impression, plan, and exam edited and reviewed in detail care discussed with RN Subjective Allergies: Coded Allergies: No Known Allergies (Unverified , 01/28/20) Subjective overall same comfortable MRSA bacteremia care noted overnight Objective Last 24 Hour Vital Signs Date Time Temp Pulse Resp B/P (MAP) Pulse Ox O2 Delivery O2 Flow Rate FiO2 02/04/20 12:00 97.9 86 17 143/86 (105) 97 02/04/20 09:23 83 144/80 02/04/20 09:00 Nasal Cannula 2.0 02/04/20 08:00 97.5 83 18 144/80 (101) 97 02/04/20 04:00 97.5 79 18 155/75 (101) 96 02/04/20 00:00 97.9 83 20 149/76 (100) 97 02/03/20 21:00 Nasal Cannula 2.0 02/03/20 20:19 97.2 02/03/20 20:00 97.9 101 24 119/54 (75) 96 02/03/20 16:00 97.2 80 18 146/67 (93) 97 Intake and Output 02/03/20 02/04/20 19:00 07:00 Intake Total 800 ml 500 ml Output Total 1000 ml 500 ml Balance -200 ml 0 ml Intake Oral 800 ml 500 ml Output Urine Total 1000 ml 500 ml # Bowel Movements 2 1 Laboratory Tests 02/04/20 09:37: Vancomycin Level Trough 10.9 Height (Feet): 5 Height (Inches): 1.00 Weight (Pounds): 139 Objective WDWN NAD clear breath sounds bilaterally without rhonchi or wheeze [id number] without MRG NABS nontender no HSM no CCE nonfocal back pain noted Deon Grover MD Feb 04, 2020 13:46
[2020-02-04 16:00] VITALS: BP 139/77
[2020-02-04 20:00] VITALS: BP 157/78
[2020-02-05] VITALS (8 sets, daily range): BP systolic 121–162; BP diastolic 63–110
[2020-02-05] MEDS: HYDROcodone/Acetamin 5/325 tab ORAL PRN ×2 (05:35→19:46)
[2020-02-05] MEDS: Aspirin EC 81mg tab ORAL SCH (08:43)
--- NOTE | 2020-02-05 09:43 | Diagnostic Imaging Report ---
EXAM: XR Chest, 1 View CLINICAL HISTORY: Shortness of breath TECHNIQUE: Frontal view of the chest. COMPARISON: Chest x-rays dated 02/03/20 FINDINGS: Lungs: Pulmonary vascular congestion. Subsegmental atelectasis versus infiltrate in the left lung base. Pleural space: Small bilateral pleural effusions,. Heart: Carotid silhouette appears enlarged, however, may be exaggerated by portable AP technique. Mediastinum: Unremarkable. Bones/joints: Unremarkable. Vasculature: Atherosclerotic plaque in the aortic arch. Tubes, lines and devices: Telemetry leads overlie the thorax. Cardiac pacer in the left chest wall with the lead tips in the right atrium and right ventricle regions. IMPRESSION: 1. No significant interval change from the prior exam. 2. Pulmonary vascular congestion. 3. Small bilateral pleural effusions,. 4. Subsegmental atelectasis versus infiltrate in the left lung base.
[2020-02-05] MEDS: Vancomycin 1.25gm/NS Premix IVPB SCH (11:38)
--- NOTE | 2020-02-05 13:11 | General Progress Note ---
Assessment/Plan Assessment/Plan: Impression: Back pain MRSA bacteremia Leukocytosis Pulmonary Infiltrates, Covid 19 negative Elevated white blood cell count Spondylosis of lumbar spine Spinal stenosis Hypertension Pacemaker Congestive Heart Failure Renal impairment improving Plan: IV Antibiotics per ID Pain Medications Renal follow up Monitor labs IVF - off and lasix given Mistry catheter out hope to stabilize and dc home with HH will await ID clearance and proceed with dc planning update family impression, plan, and exam edited and reviewed in detail care discussed with RN Subjective Allergies: Coded Allergies: No Known Allergies (Unverified , 01/28/20) Subjective overall same comfortable MRSA bacteremia care noted overnight mistry out Objective Last 24 Hour Vital Signs Date Time Temp Pulse Resp B/P (MAP) Pulse Ox O2 Delivery O2 Flow Rate FiO2 02/05/20 11:55 98.3 86 19 127/82 (97) 99 02/05/20 08:43 90 130/63 02/05/20 08:25 Nasal Cannula 2.0 02/05/20 08:00 98.1 90 20 130/63 (85) 99 02/05/20 04:00 97.7 74 20 121/75 (90) 99 02/05/20 00:00 97.7 81 18 138/77 (97) 98 02/04/20 21:00 Nasal Cannula 2.0 02/04/20 20:00 98.6 84 20 157/78 (104) 99 02/04/20 16:00 97.9 83 20 139/77 (97) 98 02/04/20 15:49 Nasal Cannula 2.0 Intake and Output 02/04/20 02/05/20 19:00 07:00 Intake Total 880 ml 200 ml Balance 880 ml 200 ml Intake Oral 880 ml 200 ml # Voids 3 5 # Bowel Movements 3 Height (Feet): 5 Height (Inches): 1.00 Weight (Pounds): 139 Objective WDWN NAD clear breath sounds bilaterally without rhonchi or wheeze [id number] without MRG NABS nontender no HSM no CCE nonfocal back pain controlled Deon Grvoer MD Feb 05, 2020 13:11
--- NOTE | 2020-02-05 15:12 | Cardiology Report ---
APPROVED REPORT EXAM: Two-dimensional and M-mode echocardiogram with Doppler and color Doppler. INDICATION Endocarditis M-Mode DIMENSIONS IVSd1.0 (0.7-1.1cm)Left Atrium (MM)5.3 (1.6-4.0cm) LVDd5.3 (3.5-5.6cm)Aortic Root3.0 (2.0-3.7cm) PWd1.0 (0.7-1.1cm)Aortic Cusp Exc.1.8 (1.5-2.0cm) IVSs1.9 cmEPSS0.3 (>1.0cm) LVDs3.6 (2.5-4.0cm) PWs1.2 cm <Conclusion> Normal left ventricular chamber size, systolic function and wall motion. Left ventricular ejection fraction estimated to be 65 %. Concentric left ventricular hypertrophy. No evidence of pericardial effusion. Moderate left posterior pleural effusion. Moderate left atrial enlargement. All other cardiac chamber sizes are within normal limits. Focal aortic valve sclerosis with adequate cusp excursion. Thickened mitral valve leaflets with normal excursion. Mild mitral annulus and aortic root calcification. Pulmonic valve not well visualized. Normal tricuspid valve structure. IVC at normal size and collapsing with respiration. A color flow and spectral Doppler study was performed and revealed: Mild aortic regurgitation. Severe mitral regurgitation. Mitral diastolic velocities suggest LV pseudo-normal physiology c/w moderate diastolic dysfunction (Grade II). Moderate tricuspid regurgitation. Tricuspid systolic velocities suggests peak right ventricular systolic pressure of 52 mmHg consistent with moderate pulmonary hypertension.
--- NOTE | 2020-02-05 16:27 | Infectious Diseases Prog Note ---
Assessment/Plan Assessment/Plan A; 1. Sepsis with MRSA 2. Atelectasis/ pneumonia 3. Hypertension. 4. Congestive heart failure. 5. Leukocytosis resolved 6. Spinal stenosis/ back pain PLAN: 1. Continue IV vancomycin. 2. 2D echo: no vegetation Subjective ROS Limited/Unobtainable: Yes Allergies: Coded Allergies: No Known Allergies (Unverified , 01/28/20) Objective Last 24 Hour Vital Signs Date Time Temp Pulse Resp B/P (MAP) Pulse Ox O2 Delivery O2 Flow Rate FiO2 02/05/20 15:52 97.7 90 18 159/110 (126) 94 02/05/20 11:55 98.3 86 19 127/82 (97) 99 02/05/20 08:43 90 130/63 02/05/20 08:25 Nasal Cannula 2.0 02/05/20 08:00 98.1 90 20 130/63 (85) 99 02/05/20 04:00 97.7 74 20 121/75 (90) 99 02/05/20 00:00 97.7 81 18 138/77 (97) 98 02/04/20 21:00 Nasal Cannula 2.0 02/04/20 20:00 98.6 84 20 157/78 (104) 99 Height (Feet): 5 Height (Inches): 1.00 Weight (Pounds): 139 General Appearance: no acute distress HEENT: mucous membranes moist Respiratory/Chest: lungs clear Cardiovascular: normal rate Abdomen: soft, non tender Extremities: no edema Neurologic/Psychiatric: other - sleeping Current Medications Medications (Trade) Dose Ordered Sig/[place] Route PRN Reason Start Time Stop Time Status Last Admin Dose Admin Acetaminophen (Tylenol) 650 mg Q6H PRN ORAL Mild Pain (Pain Scale 1-3) 01/28/20 06:15 02/27/20 06:14 02/02/20 06:04 Acetaminophen/ Hydrocodone Bitart ([place] 5/325) 1 tab Q6H PRN ORAL For Pain 02/04/20 21:00 02/11/20 20:59 02/05/20 05:35 Amlodipine Besylate (Norvasc) 2.5 mg DAILY ORAL 01/28/20 09:00 02/27/20 08:59 02/05/20 08:43 Aspirin (Ecotrin) 81 mg DAILY ORAL 01/29/20 09:00 03/14/20 08:59 02/05/20 08:43 Hydralazine HCl (Apresoline) 25 mg Q6H PRN ORAL For High Blood Pressure 01/28/20 06:15 04/27/20 06:14 Ondansetron HCl (Zofran) 4 mg Q6H PRN IVP Nausea & Vomiting 01/28/20 06:15 02/27/20 06:14 02/01/20 15:55 Vancomycin HCl (Vanco pharmacy to dose) 1 ea DAILY PRN MISC Per rx protocol 01/29/20 10:45 02/28/20 10:44 Vancomycin/Sodium Chloride 275 ml @ 183.333 mls/hr Q24H IVPB 02/04/20 11:00 02/09/20 10:59 02/05/20 11:38 Vlad Kathleen MD Feb 05, 2020 16:27
[2020-02-06] VITALS: BP 136/68
[2020-02-06 04:00] VITALS: BP 120/72
[2020-02-06 08:00] VITALS: BP 137/78
--- NOTE | 2020-02-06 08:34 | General Progress Note ---
Assessment/Plan Assessment/Plan: Impression: Back pain MRSA bacteremia Leukocytosis Pulmonary Infiltrates, Covid 19 negative Elevated white blood cell count Spondylosis of lumbar spine Spinal stenosis Hypertension Pacemaker Congestive Heart Failure Renal impairment improving Plan: IV Antibiotics per ID Pain Medications Renal follow up Monitor labs IVF - off and lasix PRN Mistry catheter out hope to stabilize and dc home with HH will await ID clearance and proceed with dc planning update family impression, plan, and exam edited and reviewed in detail care discussed with RN Subjective Allergies: Coded Allergies: No Known Allergies (Unverified , 01/28/20) Subjective overall same comfortable MRSA bacteremia echo negative care noted overnight mistry out and able to urinate Objective Last 24 Hour Vital Signs Date Time Temp Pulse Resp B/P (MAP) Pulse Ox O2 Delivery O2 Flow Rate FiO2 02/06/20 04:00 97.7 95 20 120/72 (88) 95 02/06/20 00:00 97.8 81 20 136/68 (90) 96 02/05/20 21:00 Nasal Cannula 2.0 02/05/20 20:00 98.1 89 21 140/70 (93) 97 02/05/20 18:00 149/98 (115) 02/05/20 17:07 162/108 02/05/20 16:46 162/108 (126) 02/05/20 15:52 97.7 90 18 159/110 (126) 94 02/05/20 11:55 98.3 86 19 127/82 (97) 99 02/05/20 08:43 90 130/63 Intake and Output 02/05/20 02/06/20 19:00 07:00 Intake Total 1155 ml 400 ml Balance 1155 ml 400 ml Intake Oral 880 ml 400 ml IV Total 275 ml # Voids 8 2 Height (Feet): 5 Height (Inches): 1.00 Weight (Pounds): 139 Objective WDWN NAD clear breath sounds bilaterally without rhonchi or wheeze [id number] without MRG NABS nontender no HSM no CCE nonfocal back pain controlled Deon Grover MD Feb 06, 2020 08:34
[2020-02-06] MEDS: Aspirin EC 81mg tab ORAL SCH (09:04)
--- NOTE | 2020-02-06 11:53 | Infectious Diseases Prog Note ---
Assessment/Plan Assessment/Plan antibiotics : vancomycin iv A 1. MRSA sepsis 2. hypertension 3. ? pneumonia 4. leucocytosis resolved P 1. continue iv vancomycin 18 more days 2. will follow up cultures Subjective Constitutional: Denies: fever, chills Respiratory: Denies: shortness of breath, dry cough Gastrointestinal/Abdominal: Denies: nausea, vomiting, diarrhea Musculoskeletal: Denies: pain Allergies: Coded Allergies: No Known Allergies (Unverified , 01/28/20) Objective Last 24 Hour Vital Signs Date Time Temp Pulse Resp B/P (MAP) Pulse Ox O2 Delivery O2 Flow Rate FiO2 02/06/20 09:04 96 137/78 02/06/20 08:00 98.4 96 18 137/78 (97) 95 02/06/20 04:00 97.7 95 20 120/72 (88) 95 02/06/20 00:00 97.8 81 20 136/68 (90) 96 02/05/20 21:00 Nasal Cannula 2.0 02/05/20 20:00 98.1 89 21 140/70 (93) 97 02/05/20 18:00 149/98 (115) 02/05/20 17:07 162/108 02/05/20 16:46 162/108 (126) 02/05/20 15:52 97.7 90 18 159/110 (126) 94 02/05/20 11:55 98.3 86 19 127/82 (97) 99 Height (Feet): 5 Height (Inches): 1.00 Weight (Pounds): 139 Respiratory/Chest: lungs clear Cardiovascular: normal rate, regular rhythm, no gallop/murmur Abdomen: soft, non tender Extremities: no edema Current Medications Medications (Trade) Dose Ordered Sig/[place] Route PRN Reason Start Time Stop Time Status Last Admin Dose Admin Acetaminophen (Tylenol) 650 mg Q6H PRN ORAL Mild Pain (Pain Scale 1-3) 01/28/20 06:15 02/27/20 06:14 02/02/20 06:04 Acetaminophen/ Hydrocodone Bitart ([place] 5/325) 1 tab Q6H PRN ORAL For Pain 02/04/20 21:00 02/11/20 20:59 02/05/20 19:46 Amlodipine Besylate (Norvasc) 2.5 mg DAILY ORAL 01/28/20 09:00 02/27/20 08:59 02/06/20 09:04 Aspirin (Ecotrin) 81 mg DAILY ORAL 01/29/20 09:00 03/14/20 08:59 02/06/20 09:04 Hydralazine HCl (Apresoline) 25 mg Q6H PRN ORAL For High Blood Pressure 01/28/20 06:15 04/27/20 06:14 02/05/20 17:07 Ondansetron HCl (Zofran) 4 mg Q6H PRN IVP Nausea & Vomiting 01/28/20 06:15 02/27/20 06:14 02/01/20 15:55 Vancomycin HCl (Vanco pharmacy to dose) 1 ea DAILY PRN MISC Per rx protocol 01/29/20 10:45 02/28/20 10:44 Vancomycin/Sodium Chloride 275 ml @ 183.333 mls/hr Q24H IVPB 02/04/20 11:00 02/09/20 10:59 02/05/20 11:38 Chikis Leos MD Feb 06, 2020 11:53
[2020-02-06 12:00] VITALS: BP 133/69
[2020-02-06] MEDS: Vancomycin 1.25gm/NS Premix IVPB SCH (12:02)
[2020-02-06 16:00] VITALS: BP 131/65
[2020-02-06 20:00] VITALS: BP 128/67
[2020-02-06] MEDS: HYDROcodone/Acetamin 5/325 tab ORAL PRN (22:00)
[2020-02-06] MEDS: Dyna-Hex 2% Top Sol 2oz TOPIC SCH (22:01)
[2020-02-07] VITALS (7 sets, daily range): BP systolic 120–151; BP diastolic 71–87
[2020-02-07] MEDS: Aspirin EC 81mg tab ORAL SCH (09:23)
[2020-02-07] MEDS: Vancomycin 1.25gm/NS Premix IVPB SCH (11:00)
--- NOTE | 2020-02-07 11:10 | Infectious Diseases Prog Note ---
Assessment/Plan Assessment/Plan antibiotics : vancomycin iv A 1. MRSA sepsis 2. hypertension 3. ? pneumonia 4. leucocytosis resolved P 1. continue iv vancomycin 17 more days 2. will follow up cultures 3. PICC line 4. cbc, bmp, vancomycin level q weekly Subjective Constitutional: Denies: fever, chills Respiratory: Denies: shortness of breath, dry cough Gastrointestinal/Abdominal: Denies: nausea, vomiting, diarrhea Musculoskeletal: Reports: pain Allergies: Coded Allergies: No Known Allergies (Unverified , 01/28/20) Objective Last 24 Hour Vital Signs Date Time Temp Pulse Resp B/P (MAP) Pulse Ox O2 Delivery O2 Flow Rate FiO2 02/07/20 09:23 83 122/74 02/07/20 08:00 97.7 83 18 122/74 (90) 96 02/07/20 04:00 96.9 94 18 141/80 (100) 98 02/07/20 00:00 98.3 81 18 120/86 (97) 96 02/06/20 21:00 Nasal Cannula 2.0 02/06/20 20:00 99.0 79 18 128/67 (87) 98 02/06/20 16:00 97.0 87 18 131/65 (87) 98 02/06/20 12:00 97.8 89 18 133/69 (90) 95 Height (Feet): 5 Height (Inches): 1.00 Weight (Pounds): 139 Respiratory/Chest: lungs clear Cardiovascular: normal rate, regular rhythm, no gallop/murmur Abdomen: soft, non tender Extremities: no edema Laboratory Tests Test 02/07/20 09:50 Vancomycin Level Trough 19.7 ug/mL (5.0-12.0) H Current Medications Medications (Trade) Dose Ordered Sig/[place] Route PRN Reason Start Time Stop Time Status Last Admin Dose Admin Acetaminophen (Tylenol) 650 mg Q6H PRN ORAL Mild Pain (Pain Scale 1-3) 01/28/20 06:15 02/27/20 06:14 02/02/20 06:04 Acetaminophen/ Hydrocodone Bitart ([place] 5/325) 1 tab Q6H PRN ORAL For Pain 02/04/20 21:00 02/11/20 20:59 02/06/20 22:00 Amlodipine Besylate (Norvasc) 2.5 mg DAILY ORAL 01/28/20 09:00 02/27/20 08:59 02/07/20 09:23 Aspirin (Ecotrin) 81 mg DAILY ORAL 01/29/20 09:00 03/14/20 08:59 02/07/20 09:23 Chlorhexidine Gluconate ([place]-Hex 2%) 1 applic DAILY@2000 TOPIC 02/06/20 20:00 05/06/20 19:59 02/06/20 22:01 Heparin Sodium/ Sodium Chloride (Heparin 1000 units/500ml Premix) 1,000 unit ONCE PRN IV PICC LINE 02/08/20 09:00 02/08/20 23:59 Hydralazine HCl (Apresoline) 25 mg Q6H PRN ORAL For High Blood Pressure 01/28/20 06:15 04/27/20 06:14 02/05/20 17:07 Lidocaine HCl (Xylocaine 1% 30ml) 30 ml ONCE PRN INJ PICC LINE 02/08/20 09:00 02/08/20 23:59 Ondansetron HCl (Zofran) 4 mg Q6H PRN IVP Nausea & Vomiting 01/28/20 06:15 02/27/20 06:14 02/01/20 15:55 Vancomycin HCl (Vanco pharmacy to dose) 1 ea DAILY PRN MISC Per rx protocol 01/29/20 10:45 02/28/20 10:44 Vancomycin/Sodium Chloride 275 ml @ 183.333 mls/hr Q24H IVPB 02/04/20 11:00 02/24/20 23:59 02/06/20 12:02 Chikis Leos MD Feb 07, 2020 11:10
--- NOTE | 2020-02-07 11:37 | General Progress Note ---
Assessment/Plan Assessment/Plan: Impression: Back pain MRSA bacteremia Leukocytosis Pulmonary Infiltrates, Covid 19 negative Elevated white blood cell count Spondylosis of lumbar spine Spinal stenosis Hypertension Pacemaker Congestive Heart Failure Renal impairment improving Plan: IV Vanco x 17 days Pain Medications Renal follow up Monitor labs able to ambulate dc planning ? home vs SNF update family impression, plan, and exam edited and reviewed in detail care discussed with RN Subjective Allergies: Coded Allergies: No Known Allergies (Unverified , 01/28/20) Subjective overall same comfortable MRSA bacteremia echo negative care noted overnight mistry out and able to urinate Objective Last 24 Hour Vital Signs Date Time Temp Pulse Resp B/P (MAP) Pulse Ox O2 Delivery O2 Flow Rate FiO2 02/07/20 09:23 83 122/74 02/07/20 08:00 97.7 83 18 122/74 (90) 96 02/07/20 04:00 96.9 94 18 141/80 (100) 98 02/07/20 00:00 98.3 81 18 120/86 (97) 96 02/06/20 21:00 Nasal Cannula 2.0 02/06/20 20:00 99.0 79 18 128/67 (87) 98 02/06/20 16:00 97.0 87 18 131/65 (87) 98 02/06/20 12:00 97.8 89 18 133/69 (90) 95 Intake and Output 02/06/20 02/07/20 19:00 07:00 # Voids 2 # Bowel Movements 1 Laboratory Tests 02/07/20 09:50: Vancomycin Level Trough 19.7H Height (Feet): 5 Height (Inches): 1.00 Weight (Pounds): 139 Objective WDWN NAD clear breath sounds bilaterally without rhonchi or wheeze [id number] without MRG NABS nontender no HSM no CCE nonfocal back pain controlled Deon Grover MD Feb 07, 2020 11:37
[2020-02-07] MEDS: HYDROcodone/Acetamin 5/325 tab ORAL PRN ×2 (12:53→21:06)
[2020-02-07] MEDS: Dyna-Hex 2% Top Sol 2oz TOPIC SCH (20:00)
[2020-02-08 04:00] VITALS: BP 155/85
[2020-02-08 08:00] VITALS: BP 156/73
[2020-02-08] MEDS: Aspirin EC 81mg tab ORAL SCH (08:53)
[2020-02-08] MEDS: HYDROcodone/Acetamin 5/325 tab ORAL PRN ×2 (08:53→17:49)
[2020-02-08] MEDS ORDERED: Lidocaine 1% Plain 30 ml INJ PRN (09:00)
[2020-02-08] MEDS ORDERED: Heparin1,000 units/500ml Premix(Conc:2 units/ml) IV PRN (09:00)
--- NOTE | 2020-02-08 09:49 | General Progress Note ---
Assessment/Plan Assessment/Plan: Impression: Back pain MRSA bacteremia Leukocytosis Pulmonary Infiltrates, Covid 19 negative Elevated white blood cell count Spondylosis of lumbar spine Spinal stenosis Hypertension Pacemaker Congestive Heart Failure Renal impairment improving Plan: IV Vanco x 16 days Pain Medications Renal follow up Monitor labs able to ambulate dc planning home with HH update family impression, plan, and exam edited and reviewed in detail care discussed with RN Subjective Allergies: Coded Allergies: No Known Allergies (Unverified , 01/28/20) Subjective overall same comfortable MRSA bacteremia echo negative care noted overnight mistry out and able to urinate Objective Last 24 Hour Vital Signs Date Time Temp Pulse Resp B/P (MAP) Pulse Ox O2 Delivery O2 Flow Rate FiO2 02/08/20 09:23 97.5 02/08/20 09:00 Room Air 02/08/20 08:53 82 156/73 02/08/20 08:00 97.5 82 20 156/73 (100) 94 02/08/20 04:00 98.0 79 18 155/85 (108) 100 02/07/20 23:52 96.6 80 18 151/76 (101) 94 02/07/20 21:00 Room Air 02/07/20 20:00 98.2 79 18 143/71 (95) 97 02/07/20 16:00 98.8 82 18 137/87 (104) 97 02/07/20 12:00 97.4 89 18 147/79 (101) 94 Intake and Output 02/07/20 02/08/20 19:00 07:00 Intake Total 1086.666 ml 200 ml Balance 1086.666 ml 200 ml Intake Oral 720 ml 200 ml IV Total 366.666 ml # Voids 4 2 # Bowel Movements 1 1 Laboratory Tests 02/07/20 09:50: Vancomycin Level Trough 19.7H Height (Feet): 5 Height (Inches): 1.00 Weight (Pounds): 139 Objective WDWN NAD clear breath sounds bilaterally without rhonchi or wheeze [id number] without MRG NABS nontender no HSM no CCE nonfocal back pain controlled Deon Grover MD Feb 08, 2020 09:49
--- NOTE | 2020-02-08 10:52 | Infectious Diseases Prog Note ---
Assessment/Plan Assessment/Plan antibiotics : vancomycin iv A 1. MRSA sepsis 2. hypertension 3. ? pneumonia 4. leucocytosis resolved P 1. continue iv vancomycin 16 more days 2. will follow up cultures 3. cbc, bmp, vancomycin level q weekly Subjective Constitutional: Denies: fever, chills Respiratory: Reports: dry cough - mild; Denies: shortness of breath Gastrointestinal/Abdominal: Denies: nausea, vomiting, diarrhea Musculoskeletal: Reports: pain - back Allergies: Coded Allergies: No Known Allergies (Unverified , 01/28/20) Objective Last 24 Hour Vital Signs Date Time Temp Pulse Resp B/P (MAP) Pulse Ox O2 Delivery O2 Flow Rate FiO2 02/08/20 09:23 97.5 02/08/20 09:00 Room Air 02/08/20 08:53 82 156/73 02/08/20 08:00 97.5 82 20 156/73 (100) 94 02/08/20 04:00 98.0 79 18 155/85 (108) 100 02/07/20 23:52 96.6 80 18 151/76 (101) 94 02/07/20 21:00 Room Air 02/07/20 20:00 98.2 79 18 143/71 (95) 97 02/07/20 16:00 98.8 82 18 137/87 (104) 97 02/07/20 12:00 97.4 89 18 147/79 (101) 94 Height (Feet): 5 Height (Inches): 1.00 Weight (Pounds): 139 Respiratory/Chest: lungs clear Cardiovascular: normal rate, regular rhythm, no gallop/murmur Abdomen: soft, non tender Extremities: no edema Current Medications Medications (Trade) Dose Ordered Sig/[place] Route PRN Reason Start Time Stop Time Status Last Admin Dose Admin Acetaminophen (Tylenol) 650 mg Q6H PRN ORAL Mild Pain (Pain Scale 1-3) 01/28/20 06:15 02/27/20 06:14 02/02/20 06:04 Acetaminophen/ Hydrocodone Bitart ([place] 5/325) 1 tab Q6H PRN ORAL For Pain 02/04/20 21:00 02/11/20 20:59 02/08/20 08:53 Amlodipine Besylate (Norvasc) 2.5 mg DAILY ORAL 01/28/20 09:00 02/27/20 08:59 02/08/20 08:53 Aspirin (Ecotrin) 81 mg DAILY ORAL 01/29/20 09:00 03/14/20 08:59 02/08/20 08:53 Chlorhexidine Gluconate (Haylie-Hex 2%) 1 applic DAILY@2000 TOPIC 02/06/20 20:00 05/06/20 19:59 02/06/20 22:01 Heparin Sodium/ Sodium Chloride (Heparin 1000 units/500ml Premix) 1,000 unit ONCE PRN IV PICC LINE 02/08/20 09:00 02/08/20 23:59 Hydralazine HCl (Apresoline) 25 mg Q6H PRN ORAL For High Blood Pressure 01/28/20 06:15 04/27/20 06:14 02/05/20 17:07 Lidocaine HCl (Xylocaine 1% 30ml) 30 ml ONCE PRN INJ PICC LINE 02/08/20 09:00 02/08/20 23:59 Ondansetron HCl (Zofran) 4 mg Q6H PRN IVP Nausea & Vomiting 01/28/20 06:15 02/27/20 06:14 02/01/20 15:55 Vancomycin HCl (Vanco pharmacy to dose) 1 ea DAILY PRN MISC Per rx protocol 01/29/20 10:45 02/28/20 10:44 Vancomycin/Sodium Chloride 275 ml @ 183.333 mls/hr Q24H IVPB 02/04/20 11:00 02/24/20 23:59 02/07/20 11:00 Chikis Leos MD Feb 08, 2020 10:52
[2020-02-08] MEDS: Vancomycin 1.25gm/NS Premix IVPB SCH (11:42)
[2020-02-08 12:00] VITALS: BP 152/89
[2020-02-08 16:00] VITALS: BP 157/86
--- NOTE | 2020-02-08 16:54 | Pre-Procedure Note/Attestation ---
Pre-Procedure Note/Attestation Complete Prior to Procedure Planned Procedure: not applicable Procedure Narrative: PICC line placement Indications for Procedure Pre-Operative Diagnosis: need iv access Attestation informed consent obtained from family member by primary team, confirmed prior ro procedure. Riki Serra M.D. Feb 08, 2020 16:54
--- NOTE | 2020-02-08 17:04 | Diagnostic Imaging Report ---
Indications: Needs long-term IV access Technique: Ultrasound performed demonstrating only small collaterals in the right upper extremity. Left arm was selected for PICC line placement as more sizable veins were noted. Ultrasound confirms patent compressible left brachial vein. Total sterile technique, including sterile probe cover and sterile gel, hat, mask,, sterile gown, large sterile drape, and preparation with 2% chlorhexidine utilized. Local anesthesia with 1% lidocaine. Under real-time ultrasound guidance, puncture left brachial vein using 21-gauge needle, documented and archived, passage 0.018 guidewire under direct fluoroscopy. Wire passed easily into the SVC across the pacemaker wires. The 4.5 [place] peel-away sheath was placed however there is difficulty passing the 4 [place] double-lumen PICC line across level of the left innominate vein. No 0.018 inch possibly ends are available therefore a decision was made to leave the PICC short. The catheter was cut to appropriate length and advanced through the peel-away sheath and positioned with its tip at the region of the axillary/subclavian confluence. Catheter was secured to the skin with a fixation device. Is tested noted to flush and aspirate well. A dressing was applied. Patient tolerated the procedure well and left the department stable condition. Total fluoroscopy time 149 seconds. Total fluoroscopy dose 14.98 mGy. Total number fluoroscopic images obtained: 4 IMPRESSION: Only small collateral veins noted in the right upper extremity. No suitable target for PICC line placement. 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 Placement of 4 [place] double-lumen PICC via patent left basilic vein with catheter tip positioned at the left axillary/subclavian venous confluence. Catheter tested and noted to flush and aspirate well. If more central positioning of the catheter is needed then consideration should can given to tunneled PICC line (transjugular) placement.
[2020-02-08] MEDS ORDERED: VANCOMYCIN1.5 GM/300 IV (17:40)
[2020-02-08] MEDS ORDERED: VANCOMYCIN1.25 GM/23 IV (17:49)
--- NOTE | 2020-02-10 08:02 | Discharge Summary ---
Discharge Summary Discharge Summary _ DATE OF ADMISSION: 01/28/2020 DATE OF DISCHARGE: 02/08/2020 DISCHARGED BY: Dr. Grover REASON FOR ADMISSION: 85 years old female with past medical history of hypertension, congestive heart failure, status post permanent pacemaker placement, presented with 2 weeks of worsening low back pain. She denied new weakness or numbness. She denied trauma or injury. No fevers or chills. Patient also reported running out of her blood pressure medications. She denied cough and chest pain . She complained of dysuria and intermittent incontinence , but no saddle numbness. Upon evaluation vital signs revealed elevated blood pressure 158/84 , otherwise vital signs were stable. Laboratory work-up revealed significant leukocytosis WBC 21.7, stable hemoglobin, hematocrit and platelet count. Urinalysis revealed +2 protein, no pyuria ,and no bacteria. Potassium 2.5. Magnesium 1.7. BUN 24, creatinine 1.6. Glucose 135. Lactic acid 1.4. Troponin 0.021, pro BNP 4338. Rapid COVID 19 was negative. Chest x-ray revealed cardiomegaly and probable atelectasis , however superimposed airspace disease was not excluded. X-ray of the lumbar spine revealed degenerative spondylosis with no acute fracture or traumatic misalignment. CT scan of the lumbar spine revealed no acute fracture. Multilevel degenerative changes, involving L4-5 with grade 12 anterolisthesis and severe spinal canal stenosis. Likely some degree of mass-effect on the cauda equina nerve roots. In emergency department patient received IV fluids and analgesic. Potassium was replaced. Patient pancultured. started on empiric antibiotic and admitted for further management. CONSULTANTS: ID specialist Dr. Leos pet groomer Dr. Jennings HOSPITAL COURSE: Patient admitted to medical surgical floor . Patient was provided with IV fluids and empiric antibiotics. Pain management was addressed as needed. Collins catheter was placed in ED for close intake and output monitoring. Venous duplex bilateral lower extremity revealed no evidence of acute DVT. P Supplemental oxygen provided as needed to keep pulse oximetry above 92%. Patient was followed-up with a chest x-ray. Blood culture revealed MRSA , and urine culture was negative. Patient was treated with antibiotic as per ID specialist recommendation s. Leukocytosis resolved ,no fevers. Patient need to continue IV vancomycin for 16 more days. PICC line was placed prior to discharge Echocardiogram revealed preserved ejection fraction of 65% with left ventricular hypertrophy. No evidence of wall motion abnormality. Moderate left posterior pleural effusion. P Moderate diastolic dysfunction grade 2. Moderate mitral and tricuspid regurgitation. Right ventricular systolic pressure of 52 consistent with a moderate pulmonary hypertension. Volumes were closely monitored. Patient received spot diuresis. Renal parameters and electrolytes were closely monitored. Acute renal failure resolved: BUN from 24 down to 13, and creatinine from 1.6 down to 1.0. All electrolytes corrected prior to discharge. Patient was working with physical therapist. Pain was controlled. Patient was able to ambulate with the physical therapist. Fall precaution maintained . Collins catheter was discontinued. Patient was able to urinate without difficulties. Home health was arranged for physical therapy and IV antibiotic . Patient was stable for discharge . FINAL DIAGNOSES: MRSA sepsis Probable pneumonia Hypertension Acute kidney injury likely due to dehydration Lumbar spine spondylosis Spinal stenosis Back pain Leukocytosis-resolved Hypertension Pacemaker Congestive heart failure DISCHARGE MEDICATIONS: See Medication Reconciliation list. DISCHARGE INSTRUCTIONS: Patient was discharged home with home health services. Follow up with primary care provider in one week. iqra David had been assigned to dictate discharge summary for this account. I was not involved in the patient's management. Viki Ojeda NP Feb 10, 2020 08:02
== END 2020-02-08 19:10 | disposition home health service (06) | DRG 720 ==
LOC: EDBD 03:29 → EMR 04:01 → 3E 05:30 → EDBEDREQ 05:58 → 3E 01-31 23:15 → 4E 02-03 03:20
PROC: 05H633Z Insertion of Infusion Device into Left Subclavian Vein, Percutaneous Approach (ICD-10-PCS; principal; 2020-02-08)
DX: A41.02 Sepsis due to Methicillin resistant Staphylococcus aureus (principal); N39.0 Urinary tract infection, site not specified; N17.9 Acute kidney failure, unspecified; R00.1 Bradycardia, unspecified; I13.0 Hypertensive heart and chronic kidney disease with heart failure and stage 1 through stage 4 chronic kidney disease, or unspecified chronic kidney disease; I50.9 Heart failure, unspecified; N18.9 Chronic kidney disease, unspecified; M48.061 Spinal stenosis, lumbar region without neurogenic claudication; J18.9 Pneumonia, unspecified organism; E87.6 Hypokalemia; J98.11 Atelectasis; Z95.0 Presence of cardiac pacemaker; I27.20 Pulmonary hypertension, unspecified; I34.0 Nonrheumatic mitral (valve) insufficiency; I36.1 Nonrheumatic tricuspid (valve) insufficiency; E86.0 Dehydration; M47.816 Spondylosis without myelopathy or radiculopathy, lumbar region
CPT/HCPCS: 36415; 36569; 71045; 72020; 72132; 76937; 80048; 80053; 80202; 81003; 82550; 82962; 83605; 83690; 83735; 83880; 84484; 85007; 85025; 85610; 85730; 87040; 87086; 87181; 93005; 93306; 93970; 96361; 96365; 96367; 96375; 99285; J2405; J7030; J8499; U0002

== ENCOUNTER → 2020-03-21 | Outpatient (CLI) | payer OTHER ==
[~2020-03-21] MED LIST: ASPIRIN EC81 MG ORAL; CHLORTHALIDONE25 MG ORAL; COREG25 MG ORAL; FUROSEMIDE20 M1 ORAL; HYDROCHLOROTHIA25 MG ORAL; LIPITOR20 MG ORAL; VANCOMYCIN1.25 GM/23 IV; VANCOMYCIN1.5 GM/300 IV
--- NOTE | 2020-03-21 14:39 | Diagnostic Imaging Report ---
EXAM: CT Abdomen and Pelvis Without Intravenous Contrast CLINICAL HISTORY: abdominal pain, pt. is being imaged by [place] as a courtesy to [facility] (formerly [facility]) . TECHNIQUE: Axial computed tomography images of the abdomen and pelvis without intravenous contrast. CTDI is 8.0 mGy and DLP is 416.90 mGy-cm. One or more of the following dose reduction techniques were used: automated exposure control, adjustment of the mA and/or kV according to patient size, use of iterative reconstruction technique. COMPARISON: CT lumbar spine from 01/28/2020 FINDINGS: Lung bases: See below. Pleural space: There is been interval development of bilateral pleural effusions, [id number] in size. There is associated compressive atelectasis of the lower lobes bilaterally. Heart: Cardiomegaly. ABDOMEN: Liver: Unremarkable. Gallbladder and bile ducts: The gallbladder is free distended, similar in appearance compared to the previous study. This is likely due to a fasting state. The common bile duct is dilated up to 10 mm in diameter, also stable. A radiopaque distal CBD stone is not seen. Pancreas: Unremarkable. No ductal dilation. Spleen: Unremarkable. No splenomegaly. Adrenals: Unremarkable. No mass. Kidneys and ureters: There is no hydronephrosis. There is a stable, 2. 2 cm cyst in the midpole region of the left kidney. No further imaging is recommended. Both kidneys are otherwise unremarkable. The ureters are normal as seen. Stomach and bowel: Unremarkable. No obstruction. No mucosal thickening. PELVIS: Appendix: No findings to suggest acute appendicitis. Bladder: Unremarkable. No stones. Reproductive: Unremarkable as visualized. ABDOMEN and PELVIS: Intraperitoneal space: Unremarkable. No free air. No significant fluid collection. Bones/joints: There is endplate sclerosis as well as erosive changes at the T11-12 disc space. These findings are new compared to the previous study from 01/28/2020. There are also appears to be increase in amount of soft tissue around the disc. Given the significant interval change-recommend correlation with clinical findings to assess for the possibility of a discitis. There is stable grade 1 anterolisthesis of L4 on 5. Soft tissues: Unremarkable. Vasculature: Unremarkable. No abdominal aortic aneurysm. Lymph nodes: Unremarkable. No enlarged lymph nodes. IMPRESSION: 1. Findings suspicious for discitis at the T11-12 level. MRI is recommended for further assessment. 2. Small to moderate-sized bilateral pleural effusions with associated compressive atelectasis. 3. Stable distended gallbladder with CBD dilatation. <MYCVCSECTION> Communications: 03/21/20 04:33 Call Doctor Regarding Other, called [place] [facility] [place] on 03/21 04:34 (-07:00)
== END | disposition home or self-care (01) ==
LOC: CAT 02:07
DX: R10.9 Unspecified abdominal pain (principal); I51.7 Cardiomegaly; J90 Pleural effusion, not elsewhere classified; N28.1 Cyst of kidney, acquired; J98.11 Atelectasis
CPT/HCPCS: 74176; 74177

== ENCOUNTER 2020-03-23 11:32 | Emergency (ER) | payer MEDICARE, OTHER ==
[~2020-03-23] VITALS: Ht 160 cm; Wt 56.7 kg
[2020-03-23 11:38] VITALS: BP 158/78
[2020-03-23] MEDS ORDERED: Morphine Sulfate 4mg/ml Inj (IV USE ONLY) IVP ONE (12:00)
[2020-03-23] MEDS ORDERED: Omnipaque-300 100ml vial INJ ONE ×2 (12:00)
--- NOTE | 2020-03-23 12:03 | Emergency Room Report ---
History of Present Illness General Chief Complaint: Lower Back Pain or Injury Present Illness HPI 85-year-old female here with worsening lower back pain. Patient was recently in the hospital approximately 2 months ago where she was found to have MRSA bacteremia requiring 3 weeks of IV vancomycin. [facility]. She was complaining of some abdominal pain 3 days ago and underwent an outpatient CT scan that was negative for appendicitis or any other abdominal pathology, however did show evidence of T11-T12 discitis. Patient says this is the region of her pain. Denies fevers, chills, chest pain, palpitation, shortness of breath, trauma, IV drug use, steroid use, focal numbness or weakness, paresthesias, saddle anesthesia, urinary retention. However patient says that she has frequently been constipated and has gotten more severe recently. Last bowel movement was 2 days ago. 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 COVID-19 Screening: Negative COVID-19 COVID-19 Testing Source: corporate trust officer Nursing Documentation-H Hx Cardiac Problems: Yes Hx Hypertension: Yes Hx Pacemaker: Yes Hx Cancer: No Hx Gastrointestinal Problems: No Hx Neurological Problems: No Review of Systems All Other Systems: negative except mentioned in HPI Physical Exam Vital Signs Date Time Temp Pulse Resp B/P (MAP) Pulse Ox O2 Delivery O2 Flow Rate FiO2 03/23/20 11:32 97.9 86 19 158/78 (104) 95 Room Air Sp02 EP Interpretation: reviewed, normal General Appearance: no apparent distress, alert, non-toxic Head: normocephalic, atraumatic Eyes: bilateral eye normal inspection, bilateral eye PERRL ENT: hearing grossly normal, normal pharynx, no angioedema, normal voice Neck: full range of motion, supple/symm/no masses Respiratory: chest non-tender, lungs clear, normal breath sounds, speaking full sentences Cardiovascular #1: regular rate, rhythm, no edema Cardiovascular #2: 2+ carotid (R), 2+ carotid (L), 2+ radial (R), 2+ radial (L), 2+ dorsalis pedis (R), 2+ dorsalis pedis (L) Gastrointestinal: normal bowel sounds, non tender, soft, non-distended, no guarding, no rebound Rectal: deferred Genitourinary: normal inspection, no CVA tenderness Musculoskeletal: back normal, normal range of motion, gait/station normal, other - Lower thoracic and upper lumbar midline spinal tenderness on palpation. Mild left-sided lumbar paraspinal tenderness on palpation. No step-offs or deformities. Neurologic: alert, motor strength/tone normal, oriented x3, sensory intact, responsive, speech normal Psychiatric: judgement/insight normal, memory normal, mood/affect normal, no suicidal/homicidal ideation Lymphatic: no adenopathy Medical Decision Making Diagnostic Impression: Primary Impression: Back pain Additional Impressions: Pneumonia Discitis Thoracic spine fracture ER Course Laboratory Tests Test 03/23/20 12:00 03/23/20 12:20 White Blood Count 8.2 K/UL (4.8-10.8) Red Blood Count 3.83 M/UL (4.20-5.40) L Hemoglobin 11.2 G/DL (12.0-16.0) L Hematocrit 36.3 % (37.0-47.0) L Mean Corpuscular Volume 95 FL (80-99) Mean Corpuscular Hemoglobin 29.2 PG (27.0-31.0) Mean Corpuscular Hemoglobin Concent 30.9 G/DL (32.0-36.0) L Red Cell Distribution Width 17.3 % (11.6-14.8) H Platelet Count 392 K/UL (150-450) Mean Platelet Volume 8.0 FL (6.5-10.1) Neutrophils (%) (Auto) 70.1 % (45.0-75.0) Lymphocytes (%) (Auto) 19.9 % (20.0-45.0) L Monocytes (%) (Auto) 8.6 % (1.0-10.0) Eosinophils (%) (Auto) 0.3 % (0.0-3.0) Basophils (%) (Auto) 1.0 % (0.0-2.0) Erythrocyte Sedimentation Rate 37 MM/HR (0-30) H Sodium Level 143 MMOL/L (136-145) Potassium Level 4.5 MMOL/L (3.5-5.1) Chloride Level 109 MMOL/L (98-107) H Carbon Dioxide Level 24 MMOL/L (21-32) Blood Urea Nitrogen 12 mg/dL (7-18) Creatinine 1.0 MG/DL (0.55-1.30) Estimated Glomerular Filtration Rate > 60 mL/min (>60) Glucose Level 100 MG/DL (74-106) Lactic Acid Level 0.70 mmol/L (0.4-2.0) Calcium Level 9.3 MG/DL (8.5-10.1) Total Bilirubin 0.5 MG/DL (0.2-1.0) Aspartate Amino Transferase (AST) 37 U/L (15-37) Alanine Aminotransferase (ALT) 8 U/L (12-78) L Alkaline Phosphatase 66 U/L (46-116) Troponin I 0.034 ng/mL (0.000-0.056) C-Reactive Protein, Quantitative 8.0 mg/dL (0.00-0.90) H Total Protein 8.3 G/DL (6.4-8.2) H Albumin 2.3 G/DL (3.4-5.0) L Globulin 6.0 g/dL Albumin/Globulin Ratio 0.4 (1.0-2.7) L Urine Color Yellow Urine Appearance Clear Urine pH 6 (4.5-8.0) Urine Specific Lilly 1.020 (1.005-1.035) Urine Protein 3+ (NEGATIVE) H Urine Glucose (UA) Negative (NEGATIVE) Urine Ketones 2+ (NEGATIVE) H Urine Blood Negative (NEGATIVE) Urine Nitrite Negative (NEGATIVE) Urine Bilirubin Negative (NEGATIVE) Urine Urobilinogen Normal MG/DL (0.0-1.0) Urine Leukocyte Esterase Negative (NEGATIVE) Urine RBC 0 /HPF (0 - 2) Urine WBC 0-2 /HPF (0 - 2) Urine Squamous Epithelial Cells Few /LPF (NONE/OCC) Urine Bacteria Occasional /HPF (NONE) Total critical care time: Approximately 25 minutes Due to a high probability of clinically significant, life threatening deteriora tion, the patient required the highest level of preparedness to intervene emergently and I personally spent this critical care time directly and personally managing the patient. This critical care time included obtaining a history, examining the patient, pulse oximetry, ordering and reviewing studies, ordering treatments, evaluating response to treatment and updating management plan as needed, frequent reassessment and discussion with other providers as well as arranging for ultimate disposition. This critical to care time was performed to assess and manage the high probability of life-threatening deterioration that could result in multiorgan failure. This critical care time is separate from the separately billable procedures and treating other patients. 85-year-old female here with back pain. Patient was hemodynamically stable and neurovascular intact in the emergency department. Chest x-ray: Pulmonary infiltrates in the right upper and right lower lobe with right-sided pleural effusion. Concerning for edema versus consolidation Review of patient's previous records show that she had an outpatient CT scan performed 2 days ago at that was concerning for lower thoracic discitis. Patient had repeat CT scans performed here in the emergency department. [facility] radiology read currently pending. Patient recently had MRSA bacteremia and was given vancomycin in the emergency department for suspicion for discitis. Cefepime also given in order to cover for hospital associated pneumonia. Patient required 1 dose of IV morphine in the emergency department with good resolution of her pain. She exhibited no focal neurologic findings that would otherwise be concerning for cauda equina syndrome. Patient will be admitted. Signed out to oncoming physician Dr. Last. Last Vital Signs Date Time Temp Pulse Resp B/P (MAP) Pulse Ox O2 Delivery O2 Flow Rate FiO2 03/23/20 11:32 97.9 86 19 158/78 (104) 95 Room Air Bradley Bacon M.D. Mar 23, 2020 12:03
[2020-03-23 12:19] LABS: EOSINOPHILS % (AUTO) 0.3 % (0.0-3.0); HEMATOCRIT 36.3 % (37.0-47.0); HEMOGLOBIN 11.2 G/DL (12.0-16.0); LYMPHOCYTES % (AUTO) 19.9 % (20.0-45.0); MEAN CORPUSCULAR VOLUME 95 FL (80-99); MONOCYTES % (AUTO) 8.6 % (1.0-10.0); NEUTROPHILS % (AUTO) 70.1 % (45.0-75.0); PLATELET COUNT 392 K/UL (150-450); RED BLOOD COUNT 3.83 M/UL (4.20-5.40); RED CELL DISTRIBUTION WIDTH 17.3 % (11.6-14.8); WHITE BLOOD COUNT 8.2 K/UL (4.8-10.8)
[2020-03-23 12:33] LABS: ALANINE AMINOTRANSFERASE 8 U/L (12-78); ALBUMIN 2.3 G/DL (3.4-5.0); ALBUMIN/GLOBULIN RATIO 0.4 (1.0-2.7); ALKALINE PHOSPHATASE 66 U/L (46-116); ASPARTATE AMINO TRANSFERASE 37 U/L (15-37); BILIRUBIN,TOTAL 0.5 MG/DL (0.2-1.0); BLOOD UREA NITROGEN 12 mg/dL (7-18); CALCIUM 9.3 MG/DL (8.5-10.1); CARBON DIOXIDE 24 MMOL/L (21-32); CHLORIDE 109 MMOL/L (98-107); SODIUM 143 MMOL/L (136-145)
[2020-03-23 12:34] LABS: APPEARANCE,URINE CLEAR; BILIRUBIN, URINE NEGATIVE (NEGATIVE); GLUCOSE, URINE (UA) NEGATIVE (NEGATIVE); KETONES,URINE 2+ (NEGATIVE); LEUKOCYTE ESTERASE ,URINE NEGATIVE (NEGATIVE); NITRITE,URINE NEGATIVE (NEGATIVE); PH,URINE 6 (4.5-8.0); PROTEIN,URINE 3+ (NEGATIVE); UROBILINOGEN,URINE NORMAL MG/DL (0.0-1.0)
[2020-03-23 12:35] LABS: POTASSIUM 4.5 MMOL/L (3.5-5.1)
[2020-03-23 12:45] LABS: COLOR,URINE YELLOW
[2020-03-23] MEDS ORDERED: Vancomycin 1 GM in NS 275 ML IVPB ONE (13:45)
--- NOTE | 2020-03-23 13:48 | Diagnostic Imaging Report ---
Indication: Chest pain Technique: One view of the chest Comparison: 02/05/2020 Findings: And development of infiltrates versus edema in the right upper and lower lobes. Left lung and pleural space remain clear. There is a right pleural effusion, small. Left chest pacemaker is again demonstrated. Previously demonstrated left pleural effusion is no longer evident. Impression: Right upper and lower lobe infiltrates versus edema Right pleural effusion Other findings as noted
--- NOTE | 2020-03-23 13:59 | Diagnostic Imaging Report ---
Indications: Worsening mid to lower back pain Technique: Spiral acquisitions obtained through the lumbar spine. Multiplanar reconstructions were generated. No IV contrast utilized. Total dose length product 546 mGycm. CTDIvol(s) 9 mGy. 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 No associated spondylolysis. There is very slight posterior displacement of L5 on S1 and very slight anterior displacement of L3 on L4.. The remaining bony alignment is normal. Vertebral body heights are preserved. No acute fracture. No dislocations. At T12-L1, there is mild degenerative disc narrowing. No significant disc bulge or protrusion, spinal stenosis, or neural foraminal stenosis. At L1-2 and L2-3, there is bilateral facet arthrosis. No significant disc bulge or protrusion, spinal stenosis, or neural foraminal stenosis. The disc spaces are preserved. At L3-4, there is mild circumferential annular bulge, which does not simply compromise the spinal canal. There is bilateral facet arthrosis which results in mild narrowing of the left neural foramen. The disc space is preserved. At L4-5, combination of alignment abnormality, short pedicles, and posterior broad-based disc protrusion results in moderate to severe narrowing of the spinal canal. There is mild compromise of the bilateral neural foramina due to the alignment abnormality. There is severe bilateral facet arthrosis. There is mild narrowing of the disc At L5-S1, bilateral facet arthrosis results in mild to moderate narrowing of the bilateral neural foramina. There is degenerative disc narrowing at this level. No significant disc bulge or protrusion or spinal stenosis The included extraspinal soft tissues are unremarkable. Findings are similar to those demonstrated previously Impression: No acute bony trauma Multilevel degenerative changes, as detailed on a level by level basis above. Findings are similar to those reported on prior lumbar spine CT of 01/28/[address] scanner at [facility] is accredited by the [employer] and the scans are performed using protocols designed to limit radiation exposure to as low as reasonably achievable to attain images of sufficient resolution adequate for diagnostic evaluation.
--- NOTE | 2020-03-23 14:10 | Diagnostic Imaging Report ---
Indication: Worsening mid to lower back pain Technique: Spiral acquisitions obtained through the thoracic spine. No IV contrast utilized. Multiplanar reconstructions were generated. Total dose length product 546 mGycm. CTDIvol(s) 9.1 mGy. Dose reduction achieved using automated exposure control Comparison: No comparison thoracic spine radiograph. Reference is made to prior lumbar spine radiograph dated 01/28/2020 Findings: At T11-12, there is narrowing of the disc and marked irregularity and destructive changes of the endplates. There is loss of height of portions of the T12 and T11 vertebral bodies, which appears to be due to volume loss related to destruction rather than collapse. There is very slight anterior wedging of both of these vertebral bodies. The marrow spaces of both vertebral bodies are sclerotic in appearance. Note that these segments were visible on the prior lumbar spine CT of 01/28/2020 but findings have progressed significantly. This finding was also reported on prior abdomen pelvis CT scan of 03/21/2020. No definite abnormality of the spinal canal is noted. There is mild left and moderate to severe right neural foraminal stenosis at this level. Other than the changes at T11-12, the vertebral body alignment is otherwise preserved. There is smooth kyphotic deformity without any other focal compression abnormalities. There are degenerative proliferative changes of most of the discs. The disc spaces are largely preserved. There is mild narrowing of the right T2-3 neural foramen. At the remaining disc levels, no significant disc bulge or protrusion, spinal stenosis, or neural foraminal stenosis. There are bilateral small pleural effusions, right greater than left. A left chest pacemaker is incidentally noted. There is a left renal cyst incidentally noted. Impression: Erosive and destructive changes of the T11-12 disc, adjacent endplates, and adjacent vertebral bodies with loss of height of both. Findings have progressed significantly since a prior study of 01/28/2020, are similar to those reported on prior abdomen pelvis CT of 03/21/2020. 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 Mild degenerative changes, as detailed above Bilateral pleural effusions Other findings as noted, including pacemaker, left renal cyst The CT scanner at [facility] is accredited by the [employer] and the scans are performed using protocols designed to limit radiation exposure to as low as reasonably achievable to attain images of sufficient resolution adequate for diagnostic evaluation.
[2020-03-23] MEDS ORDERED: Cefepime HCl 1 GM in D5W 55 ML IVPB ONE (14:15)
[2020-03-23 14:40] VITALS: BP 140/74
[2020-03-23 16:22] VITALS: BP 130/67
[2020-03-23 16:35] VITALS: BP 132/67
--- NOTE | 2020-03-23 16:38 | Emergency Room Report ---
Physical Exam Vital Signs Date Time Temp Pulse Resp B/P (MAP) Pulse Ox O2 Delivery O2 Flow Rate FiO2 03/23/20 11:32 97.9 86 19 158/78 (104) 95 Room Air Medical Decision Making Diagnostic Impression: Primary Impression: Back pain Additional Impressions: Thoracic spine fracture Discitis Pneumonia ER Course Patient endorsed to me following disposition. CT T-spine and L-spine shows discitis along with osteomyelitis and bone erosion at T11/T12. No focal neurological deficits. Broad-spectrum antibiotics given. Insurance patient will be transferred to [facility] Laboratory Tests Test 03/23/20 12:00 03/23/20 12:20 White Blood Count 8.2 K/UL (4.8-10.8) Red Blood Count 3.83 M/UL (4.20-5.40) L Hemoglobin 11.2 G/DL (12.0-16.0) L Hematocrit 36.3 % (37.0-47.0) L Mean Corpuscular Volume 95 FL (80-99) Mean Corpuscular Hemoglobin 29.2 PG (27.0-31.0) Mean Corpuscular Hemoglobin Concent 30.9 G/DL (32.0-36.0) L Red Cell Distribution Width 17.3 % (11.6-14.8) H Platelet Count 392 K/UL (150-450) Mean Platelet Volume 8.0 FL (6.5-10.1) Neutrophils (%) (Auto) 70.1 % (45.0-75.0) Lymphocytes (%) (Auto) 19.9 % (20.0-45.0) L Monocytes (%) (Auto) 8.6 % (1.0-10.0) Eosinophils (%) (Auto) 0.3 % (0.0-3.0) Basophils (%) (Auto) 1.0 % (0.0-2.0) Erythrocyte Sedimentation Rate 37 MM/HR (0-30) H Sodium Level 143 MMOL/L (136-145) Potassium Level 4.5 MMOL/L (3.5-5.1) Chloride Level 109 MMOL/L (98-107) H Carbon Dioxide Level 24 MMOL/L (21-32) Blood Urea Nitrogen 12 mg/dL (7-18) Creatinine 1.0 MG/DL (0.55-1.30) Estimat Glomerular Filtration Rate > 60 mL/min (>60) Glucose Level 100 MG/DL (74-106) Lactic Acid Level 0.70 mmol/L (0.4-2.0) Calcium Level 9.3 MG/DL (8.5-10.1) Total Bilirubin 0.5 MG/DL (0.2-1.0) Aspartate Amino Transf (AST/SGOT) 37 U/L (15-37) Alanine Aminotransferase (ALT/SGPT) 8 U/L (12-78) L Alkaline Phosphatase 66 U/L (46-116) Troponin I 0.034 ng/mL (0.000-0.056) C-Reactive Protein, Quantitative 8.0 mg/dL (0.00-0.90) H Total Protein 8.3 G/DL (6.4-8.2) H Albumin 2.3 G/DL (3.4-5.0) L Globulin 6.0 g/dL Albumin/Globulin Ratio 0.4 (1.0-2.7) L Urine Color Yellow Urine Appearance Clear Urine pH 6 (4.5-8.0) Urine Specific [place] 1.020 (1.005-1.035) Urine Protein 3+ (NEGATIVE) H Urine Glucose (UA) Negative (NEGATIVE) Urine Ketones 2+ (NEGATIVE) H Urine Blood Negative (NEGATIVE) Urine Nitrite Negative (NEGATIVE) Urine Bilirubin Negative (NEGATIVE) Urine Urobilinogen Normal MG/DL (0.0-1.0) Urine Leukocyte Esterase Negative (NEGATIVE) Urine RBC 0 /HPF (0 - 2) Urine WBC 0-2 /HPF (0 - 2) Urine Squamous Epithelial Cells Few /LPF (NONE/OCC) Urine Bacteria Occasional /HPF (NONE) Last Vital Signs Date Time Temp Pulse Resp B/P (MAP) Pulse Ox O2 Delivery O2 Flow Rate FiO2 03/23/20 16:22 97.9 70 19 130/67 95 Room Air Status: improved Disposition: SHORT-TERM HOSP Condition: Serious Referrals: Deon Grover MD (PCP) [place] Last MD Mar 23, 2020 16:38
== END 2020-03-23 16:35 | disposition short-term general hospital (02) ==
LOC: EDBD 11:32 → EMR 12:15 → CMPBEDREQ 13:42 → EMR 16:35
DX: M46.44 Discitis, unspecified, thoracic region (principal); S22.009A Unspecified fracture of unspecified thoracic vertebra, initial encounter for closed fracture; M86.9 Osteomyelitis, unspecified; M54.5 Low back pain; J18.9 Pneumonia, unspecified organism; M47.816 Spondylosis without myelopathy or radiculopathy, lumbar region; M47.817 Spondylosis without myelopathy or radiculopathy, lumbosacral region; N28.1 Cyst of kidney, acquired; Z95.0 Presence of cardiac pacemaker; J90 Pleural effusion, not elsewhere classified; Z86.14 Personal history of Methicillin resistant Staphylococcus aureus infection; I10 Essential (primary) hypertension; K59.00 Constipation, unspecified
CPT/HCPCS: 36415; 71045; 72128; 72131; 80053; 81003; 83605; 84484; 85025; 85651; 86140; 96365; 96367; 96375; 99291; J0692; J2270; J3370; J7050; U0002